=== PATIENT | female | born 1990 | race Caucasian/White ===

== ENCOUNTER 2020-03-25 17:51 | Outpatient (REF) | payer MEDICAID, SELFPAY | END 2020-03-25 17:52 | disposition home or self-care (01) | LOC: HO.LAB 17:51 | PROVIDERS: Visit Provider Internal Medicine | DX: Z20.828 Contact with and (suspected) exposure to other viral communicable diseases (principal) | CPT/HCPCS: C9803; U0003 ==

== ENCOUNTER 2020-07-08 14:52 | Emergency (ER) | payer MEDICAID, SELFPAY ==
[2020-07-08 16:16] VITALS: BP 151/89; PULSE 74; RESP 18; TEMP 36.7; O2SAT 98; BMI 45.1
[2020-07-08 16:32] LABS: MANUAL DIFF FLAG NO
[2020-07-08 16:34] LABS: Basophils Percent Auto 0.4 % (0-2); Eosinophils Percent Auto 0.6 % (0-4); Hematocrit 42.3 % (37-47); Hemoglobin 13.7 g/dl (12.0-16.0); Imm Gran Abs Auto 0.01 X10*3/uL (0.00-0.03); Imm Gran Pct Auto 0.1 % (0.0-0.4); Lymphocytes Absolute Auto 3.2 X10*3/uL (1.2-4.9); Mean Corpuscular HGB Conc 32.4 g/dl (31.0-35.0); Mean Corpuscular Hemoglobin 27.8 pg (27.0-33.0); Mean Platelet Volume 8.5 fL (9.4-12.3); Monocytes Absolute Auto 0.5 X10*3/uL (0.1-1.2); Monocytes Percent Auto 6.8 % (2-11); Neutrophils Absolute Auto 3.5 X10*3/uL (2.0-8.3); Neutrophils Percent Auto 48.1 % (45-73); Platelet Count 216 X10*3/uL (160-400); Red Blood Count 4.92 X10*6/uL (4.20-5.50); White Blood Count 7.2 X10*3/uL (4.8-10.8)
[2020-07-08 17:01] LABS: Anion Gap 13 (12-20); Blood Urea Nitrogen 14 mg/dL (9-16); Calcium 9.6 mg/dL (8.4-10.2); Carbon Dioxide 29 mmol/L (22-29); Chloride 103 mmol/L (96-108); Creatinine Clr Calc Pharmacy 142.5; Estimated Glomerular Filt Rate > 60; Glucose Random 93 mg/dL (60-115); Potassium 4.5 mmol/L (3.3-5.1); Sodium 140 mmol/L (135-145)
[2020-07-08 20:00] VITALS: BP 150/92; PULSE 72; RESP 16; TEMP 36.6; O2SAT 100
[2020-07-08] MEDS: 0.9 % Sodium Chloride 1,000 ML 999 ML IV (20:45)
--- NOTE | 2020-07-08 21:36 | ED.HA ---
HPI - Headache General Chief Complaint: Nausea/Vomiting/Diarrhea Stated Complaint: HEADACHE Time Seen by Provider: 07/08/20 21:06 Source: patient Mode of arrival: ambulatory History of Present Illness HPI Narrative: 30-year-old female with history of migraines presents with onset of migraine that she described as usual progression since Wednesday. Patient states she has not kept a headache log before but her migraines typically start and are usually associated with sensitivities to smells and occasionally to light. She denies any fevers, chills, abdominal pain, diarrhea, urinary pain/burning/frequency. Patient has the Mirena and states that she rarely has a menstrual cycle. Patient does state that she has had some nausea and vomiting for the past couple of days. Related Data Allergies Allergy/AdvReac Type Severity Reaction Status Date / Time No Known Allergies Allergy Mild NONE Unverified 12/14/19 16:19 Review of Systems Review of Systems: Pertinent positives and negatives as stated in HPI 10 point review of systems otherwise negative. PMFSH Past Medical History Source: nursing notes reviewed Medical History Migraines Social History Social History Advance Directives: No Advance Directives Information Provided: Yes Physical Exam Vital Signs: Vital Signs: Last Vital Signs Temp 97.6 F 07/08/20 22:00 Pulse 84 07/08/20 22:00 Resp 16 07/08/20 22:00 BP 136/75 07/08/20 22:00 Pulse Ox 100 07/08/20 22:00 Body Mass Index 45.1 VITAL SIGNS: Reviewed. GENERAL: Well developed, well nourished, in no acute distress. HEAD: Normocephalic/atraumatic EYES: PERRLA, EOMI intact without pain, no nystagmus OROPHARYNX: no oral lesions noted, posterior pharynx clear, dry mucosa NECK: Supple, no adenopathy LUNGS: Normal breath sounds. SpO2<100> CARDIOVASCULAR: Regular rate and rhythm without noted murmurs ABDOMEN: Soft, non-tender, non-distended with bowel sounds. SKIN: Inspection of the skin reveals no rashes NEUROLOGIC: Alert and oriented x 4. Strength and sensation to light touch were grossly intact x 4, no pronator drift, no facial asymmetry, otherwise nonfocal. Course Course Course Narrative: This is a 30-year-old female with history and clinical presentation consistent with normal onset and progression of migraine headache and doubt secondary to known Mirena device and on review of all investigations there are no acute findings. Patient will be treated with IV fluids, Reglan, Benadryl, Tylenol, Toradol and re-evaluated for headaches cessation. Review of all investigations and on re-evaluation there are no acute findings and patient reports feeling much better and feels like she can go home without difficulty. Patient was discharged in stable condition with instructions follow up with her primary care provider, keep a headache log, and request a referral to Neurology for better outpatient management of her migraines. MDM - Headache Lab Data Result diagrams: 07/08/20 16:27 07/08/20 16:27 Labs: Lab Results 07/08/20 07/08/20 07/08/20 Range/Units 16:27 16:27 21:57 WBC 7.2 (4.8-10.8) X10*3/uL RBC 4.92 (4.20-5.50) X10*6/uL Hgb 13.7 (12.0-16.0) g/dl Hct 42.3 (37-47) % MCV 86.0 (80-98) fL MCH 27.8 (27.0-33.0) pg MCHC 32.4 (31.0-35.0) g/dl RDW 13.0 (11.0-16.0) % Plt Count 216 (160-400) X10*3/uL MPV 8.5 L (9.4-12.3) fL Immature Gran % (Auto) 0.1 (0.0-0.4) % Neut % (Auto) 48.1 (45-73) % Lymph % (Auto) 44.0 H (20-40) % [place] % (Auto) 6.8 (2-11) % Eos % (Auto) 0.6 (0-4) % Baso % (Auto) 0.4 (0-2) % Lymph # (Auto) 3.2 (1.2-4.9) X10*3/uL [place] # (Auto) 0.5 (0.1-1.2) X10*3/uL Eos # (Auto) 0.0 (0.0-0.4) X10*3/uL Baso # (Auto) 0.0 (0.0-0.2) X10*3/uL Abs Immat Gran (auto) 0.01 (0.00-0.03) X10*3/uL Absolute Neuts (auto) 3.5 (2.0-8.3) X10*3/uL Absolute Nucleated RBC 0.000 (0.0-0.012) X10*3/uL Nucleated RBC % (auto) 0.0 (0.0-0.2) /100WBC Sodium 140 (135-145) mmol/L Potassium 4.5 (3.3-5.1) mmol/L Chloride 103 (96-108) mmol/L Carbon Dioxide 29 (22-29) mmol/L Anion Gap 13 (12-20) BUN 14 (9-16) mg/dL Creatinine 0.78 (0.5-1.4) mg/dL Estim Creat Clear Calc 142.5 Estimated GFR > 60 Random Glucose 93 (60-115) mg/dL Calcium 9.6 (8.4-10.2) mg/dL Beta HCG, Quant < 2 mIU/mL Urine Color Urine Appearance Urine pH (5.0-8.0) Ur Specific [place] (1.005-1.025) Urine Protein (NEG-TRACE) MG/DL Urine Glucose (UA) (NEG) MG/DL Urine Ketones (NEG) MG/DL Urine Blood (NEG) Urine Nitrite (NEG) Ur Leukocyte Esterase (NEG) Urine RBC (0) /HPF Urine WBC (0-4) /HPF Ur Squamous Epith Cells /LPF Urine Bacteria /LPF Urine Test (NEGATIVE) Urine Opiates Screen Not Detected (Not Detect) Ur Barbiturates Screen Not Detected (Not Detect) Ur Phencyclidine Scrn Not Detected (Not Detect) Ur Amphetamines Screen Not Detected (Not Detect) U Benzodiazepines Scrn Not Detected (Not Detect) Urine Cocaine Screen Not Detected (Not Detect) U Marijuana (THC) Screen Not Detected (Not Detect) 07/08/20 07/08/20 Range/Units 21:57 21:57 WBC (4.8-10.8) X10*3/uL RBC (4.20-5.50) X10*6/uL Hgb (12.0-16.0) g/dl Hct (37-47) % MCV (80-98) fL MCH (27.0-33.0) pg MCHC (31.0-35.0) g/dl RDW (11.0-16.0) % Plt Count (160-400) X10*3/uL MPV (9.4-12.3) fL Immature Gran % (Auto) (0.0-0.4) % Neut % (Auto) (45-73) % Lymph % (Auto) (20-40) % [place] % (Auto) (2-11) % Eos % (Auto) (0-4) % Baso % (Auto) (0-2) % Lymph # (Auto) (1.2-4.9) X10*3/uL [place] # (Auto) (0.1-1.2) X10*3/uL Eos # (Auto) (0.0-0.4) X10*3/uL Baso # (Auto) (0.0-0.2) X10*3/uL Abs Immat Gran (auto) (0.00-0.03) X10*3/uL Absolute Neuts (auto) (2.0-8.3) X10*3/uL Absolute Nucleated RBC (0.0-0.012) X10*3/uL Nucleated RBC % (auto) (0.0-0.2) /100WBC Sodium (135-145) mmol/L Potassium (3.3-5.1) mmol/L Chloride (96-108) mmol/L Carbon Dioxide (22-29) mmol/L Anion Gap (12-20) BUN (9-16) mg/dL Creatinine (0.5-1.4) mg/dL Estim Creat Clear Calc Estimated GFR Random Glucose (60-115) mg/dL Calcium (8.4-10.2) mg/dL Beta HCG, Quant mIU/mL Urine Color YELLOW Urine Appearance CLEAR Urine pH 6.0 (5.0-8.0) Ur Specific [place] 1.020 (1.005-1.025) Urine Protein NEG (NEG-TRACE) MG/DL Urine Glucose (UA) NEG (NEG) MG/DL Urine Ketones NEG (NEG) MG/DL Urine Blood 3+ H (NEG) Urine Nitrite NEG (NEG) Ur Leukocyte Esterase NEG (NEG) Urine RBC 1-4 (0) /HPF Urine WBC 0 (0-4) /HPF Ur Squamous Epith Cells 2+ /LPF Urine Bacteria 1+ /LPF Urine Test NEGATIVE (NEGATIVE) Urine Opiates Screen (Not Detect) Ur Barbiturates Screen (Not Detect) Ur Phencyclidine Scrn (Not Detect) Ur Amphetamines Screen (Not Detect) U Benzodiazepines Scrn (Not Detect) Urine Cocaine Screen (Not Detect) U Marijuana (THC) Screen (Not Detect) Discharge Plan Discharge Clinical Impression: Migraines Patient Disposition: Home, Self-Care Instructions: Migraine Headache (ED) Additional Instructions: 1. Tylenol 1000 mg, orally, every 6 hours as needed for pain control. Do not exceed 4000 mg within 24 hours. 2. Ibuprofen 400 mg, orally with milk or food, every 6 hours as needed for pain control. Recommend taking this together with the Tylenol for added symptom relief. 3. Stay well hydrated especially with water. 4. Please follow-up with your primary care provider in next 2-3 days and discuss further outpatient management of your migraine headaches that may involve a referral to Neurology. Do not hesitate to return to the emergency department for any acute worsening of your symptoms. Referrals: Sarahy Swanson MD [Primary Care Provider] - 2 days
[2020-07-08] MEDS: diphenhydrAMINE HCL 50 MG/ML VIAL 25 MG IVPUSH (21:43)
[2020-07-08] MEDS: Acetaminophen 325 MG TABLET 975 MG PO (21:44)
[2020-07-08] MEDS: Ketorolac Tromethamine 15 MG/ML VIAL IVPUSH (21:44)
[2020-07-08] MEDS: ondansetron HCL 4 MG/2 ML VIAL IVPUSH (21:45)
[2020-07-08] MEDS: Metoclopramide HCl 10 MG/2 ML VIAL IVPUSH (21:45)
[2020-07-08 22:00] VITALS: BP 136/75; PULSE 84; RESP 16; TEMP 36.4; O2SAT 100
[2020-07-08 22:04] LABS: Appearance Urine CLEAR; Color Urine YELLOW; Glucose Urine UA NEG (NEG); Leukocyte Esterase Urine NEG (NEG); Nitrite Urine NEG (NEG); Urine Blood 3+ (NEG); Urine Ketones NEG (NEG); Urine Protein NEG (NEG-TRACE)
[2020-07-08 22:06] LABS: Urine Pregnancy NEGATIVE (NEGATIVE)
[2020-07-08 22:07] LABS: UPreg QC Valid YES
[2020-07-08 22:11] LABS: Bacteria Urine 1+ /LPF; Squamous Epithelial Cell Urine 2+ /LPF; WBC Urine 0 /HPF (0-4)
[2020-07-08 22:34] LABS: Amphetamine Screen Urine Not Detected (Not Detect); Barbiturates, Urine Not Detected (Not Detect); Benzodiazepines Screen Urine Not Detected (Not Detect); Cannabinoid Screen Urine Not Detected (Not Detect); Cocaine Screen Urine Not Detected (Not Detect); Opiate Screen Urine Not Detected (Not Detect); Phencyclidine Screen Urine Not Detected (Not Detect)
[2020-07-08 22:56] LABS: HCG Quantitative < 2 mIU/mL
== END 2020-07-08 23:23 | disposition home or self-care (01) ==
PROVIDERS: Emergency Provider Student in an Organized Health Care Education/Training Program; PCP Pediatrics
DX: G43.909 Migraine, unspecified, not intractable, without status migrainosus (principal); R11.2 Nausea with vomiting, unspecified
CPT/HCPCS: 36415; 80048; 80307; 81001; 81003; 81025; 84702; 85025; 96361; 96374; 96375; 99284; J1200; J1885; J2405; J2765

== ENCOUNTER 2020-10-07 11:07 | Emergency (ER) | payer MEDICAID, SELFPAY ==
[2020-10-07 11:47] VITALS: BP 143/78; PULSE 93; RESP 18; TEMP 37; O2SAT 97; BMI 45.1
--- NOTE | 2020-10-07 12:53 | ED.URI ---
HPI - URI/Sore Throat General Chief Complaint: Upper Respiratory Symptoms Stated Complaint: Congested Time Seen by Provider: 10/07/20 11:53 Source: patient Mode of arrival: ambulatory Limitations: no limitations History of Present Illness HPI Narrative: 30-year-old female with history of asthma presents the emergency department with reports of cough, sore throat, congestion x1 week. Patient states her symptoms started with a minor sore throat that progressed to a nonproductive cough congestion and yellow sputum production. Denies known fevers or chills denies chest pain or shortness of breath states she did have used her inhaler more than normal over the last few days. Denies any nausea vomiting diarrhea or changes in urination. Due to concern she felt she needed to be seen she has not been tested for COVID-19. Denies other known sick contacts. Related Data Allergies Allergy/AdvReac Type Severity Reaction Status Date / Time No Known Allergies Allergy Mild NONE Verified 10/07/20 11:47 Review of Systems Review of Systems: Constitutional : No Weight loss, No Fever, No Chills, No Night Sweats, No Fatigue, No Malaise ENT/Mouth : No Hearing loss, No Ear Pain, + Nasal Congestion, No Sinus Pain, No Hoarseness, + sore throat, + Rhinorrhea, No Swallowing Difficulty Eyes: No Eye Pain, No Swelling, No Redness, No Foreign Body, No Discharge, No Vision Changes Cardiovascular : No Chest Pain, No SOB, No Dyspnea on Exertion, No Orthopnea, No Edema, No Palpitations Respiratory : + Cough, + Sputum, No Wheezing, No Smoke Exposure, No Dyspnea Gastrointestinal : No Nausea, No Vomiting, No Diarrhea, No Constipation, No abdominal Pain, No Hematochezia, No Melena Genitourinary : no irregular bleeding, No Dysuria, No Urinary Frequency, No Hematuria, No Urinary Incontinence, No Urgency, No Flank Pain, No Urinary Flow Changes, No Hesitancy Musculoskeletal : No joint pain, No Myalgias, No Joint Swelling Skin : No Skin Lesions, No rash Neuro : No Weakness, No Numbness, No Paresthesias, No Loss of Consciousness, No Dizziness, No Headache Psych : No Anxiety/Panic, No Depression, No SI/HI/AH/VH, No Social Issues, Heme/Lymph: No Bruising, No Bleeding,No Lymphadenopathy Endocrine : No Polyuria, No Polydipsia, No Temperature Intolerance PMFSH Past Medical History Attestation statement: The following information was validated with the patient. Source: old records reviewed and obtained from family Medical History (Updated 10/07/20 @ 12:55 by MILES Jama) Asthma Endometriosis Migraines Social History Social History Advance Directives: Yes Advance Directives Information Provided: Yes Advance Directives on File: No Patient : No Physical Exam Vital Signs: Vital Signs: Last Vital Signs Temp 98.6 F 10/07/20 11:47 Pulse 93 10/07/20 11:47 Resp 18 10/07/20 11:47 BP 143/78 H 10/07/20 11:47 Pulse Ox 97 10/07/20 11:47 Body Mass Index 45.1 vital signs have been reviewed as normal and appeared to be correct. Blood pressure normal. Heart rate normal. Respiration rate normal. Temperature normal. Oxygen saturation normal. Appearance: Alert. Oriented X3. No acute distress. Head: Normal external exam. Normocephalic. Atraumatic. No Post signs noted. No raccoon eyes noted Eyes: Conjunctiva and sclera normal. ENT: EAC normal. Moist mucous membranes. No drooling noted. No muffled voice noted. Mild erythema noted to the posterior pharynx without uvular deviation or soft palate fullness no trismus. Neck: Normal inspection. Neck supple. FROM. No meningeal signs. CVS: Pulses normal throughout. RRR, no murmurs. Respiratory: No respiratory distress. Painless inspiration. Clear lung sounds bilaterally without wheezing, rhonchi or rales. No accessory muscle usage noted Abdomen: No visible injury noted. Back: Full range of motion noted. Skin: Skin warm and dry. Normal skin color. Normal skin turgor. Extremities: No lower extremity edema. Extremities exhibit normal range of motion. Neuro: Oriented X 3. No motor deficit. No sensory deficit. MDM - URI/Sore Throat MDM Narrative Medical decision making narrative: Patient's vital signs are stable and she is afebrile here patient presenting to the emergency department with cold-like symptoms. Lungs are clear no acute concern for pneumonia. Pharynx is within normal limits without trismus uvular deviation or soft palate fullness. Abdomen soft nondistended nontender. Will swab for COVID-19, symptoms most likely represent viral cold will discharge with close outpatient follow-up and strict return precautions patient comfortable with this plan no signs of bacterial infection at this time. Discharge Plan Discharge Clinical Impression: Viral infection Patient Disposition: Home, Self-Care Instructions: Viral Syndrome (ED) Additional Instructions: You were seen in the emergency department today for cold-like symptoms lungs were clear with no signs of pneumonia. Given the absence of fever there is not an acute concern for sinusitis at this time in your throat was well appearing. You were swabbed for COVID-19 you will be called with these results are positive. Continue to enforce isolation precautions until these return. Continue to encourage fluids at home and follow-up with your doctor if symptoms persist or you develop high fevers. Referrals: Sarahy Swanson MD [Primary Care Provider] - 2 days Interventions: ED Discharge Assessment Last Done: 10/07/20 13:17 Discharge Date/Time: 10/07/20 13:18 Print Language: Swedish
[2020-10-07 13:29] LABS: COVID-19 Test Negative (Negative); IDNOW Serial# 9DD0AD1C
== END 2020-10-07 13:18 | disposition home or self-care (01) ==
PROVIDERS: Physician Assistant; Emergency Provider Emergency Medicine; PCP Pediatrics
DX: B34.9 Viral infection, unspecified (principal); R05 Cough; Z20.822 Contact with and (suspected) exposure to COVID-19
CPT/HCPCS: 36415; 87635; 99283

== ENCOUNTER 2020-11-12 20:36 | Emergency (ER) | payer MEDICAID, SELFPAY ==
--- NOTE | ~2020-11-12 | CT_ITS ---
EXAMINATION: CT ABDOMEN AND PELVIS WITH CONTRAST CLINICAL INFORMATION: Mid abdominal pain with diarrhea. COMPARISON: 06/17/2017 TECHNIQUE: Multidetector volumetric images were obtained from the superior aspect of the liver through the pubic symphysis following administration 85 mL of Omnipaque 350 intravenous contrast. Sagittal and coronal reformatted images were obtained on the technologist's workstation. Oral contrast: No This CT examination was performed using dose optimization techniques as appropriate, variously including the following: *Automated exposure control *Adjustment of mA and/or kV according to patient size (this includes techniques or standardized protocols for targeted exams where dose is matched to indication/reason for exam; i.e. extremities or head) *Use of iterative reconstruction technique DLP: 1096 mGy-cm FINDINGS: LUNG BASES: The visualized lung bases are unremarkable. LIVER, GALLBLADDER, AND BILIARY TREE: The liver is normal in size, shape, and attenuation. No focal hepatic lesion or biliary ductal dilatation is present. The gallbladder is unremarkable with no evidence of radiopaque gallstones, gallbladder wall thickening, or obvious pericholecystic inflammatory changes. PANCREAS: Unremarkable. SPLEEN: Unremarkable. ADRENAL GLANDS: Unremarkable. KIDNEYS AND URETERS: The kidneys are normal in size, shape, and attenuation. No hydronephrosis, hydroureter, or calculi seen. No perinephric stranding. BLADDER: Unremarkable. GASTROINTESTINAL TRACT: The small and large bowel are unremarkable. The appendix is unremarkable. ABDOMINAL WALL: No significant hernia is appreciated. LYMPH NODES: Normal. VASCULAR: Unremarkable. PELVIC VISCERA: The uterus and adnexa are unremarkable. IUD in place. OSSEOUS STRUCTURES: Unremarkable. CT/CT abdomen pelvis w con IMPRESSION: No acute findings in the abdomen or pelvis. No inflammatory change.
[2020-11-12 22:09] VITALS: BP 121/82; PULSE 87; RESP 18; TEMP 37.2; O2SAT 100; BMI 45.1
--- NOTE | 2020-11-13 02:50 | PC.NURSE ---
IV PLACED TO [facility], LABS DRAWN TO LAB. STOOL SAMPLE TO LAB FOR EVAL.
[2020-11-13 02:57] LABS: Basophils Percent Auto 0.4 % (0-2); Eosinophils Absolute Auto 0.1 X10*3/uL (0.0-0.4); Eosinophils Percent Auto 0.7 % (0-4); Hematocrit 43.7 % (37-47); Hemoglobin 14.4 g/dl (12.0-16.0); Imm Gran Abs Auto 0.02 X10*3/uL (0.00-0.03); Imm Gran Pct Auto 0.2 % (0.0-0.4); Lymphocytes Absolute Auto 3.5 X10*3/uL (1.2-4.9); Lymphocytes Percent Auto 42.9 % (20-40); MANUAL DIFF FLAG SCAN; Mean Corpuscular Hemoglobin 28.2 pg (27.0-33.0); Mean Corpuscular Volume 85.5 fL (80-98); Mean Platelet Volume 9.4 fL (9.4-12.3); Monocytes Absolute Auto 0.6 X10*3/uL (0.1-1.2); Monocytes Percent Auto 6.8 % (2-11); PLT CLUMP 1; Red Blood Count 5.11 X10*6/uL (4.20-5.50); Red Cell Distribution Width 12.6 % (11.0-16.0); SCAN SMEAR FLAG 1
[2020-11-13 02:58] LABS: Appearance Urine HAZY; Color Urine YELLOW; Glucose Urine UA NEG (NEG); Leukocyte Esterase Urine NEG (NEG); Nitrite Urine NEG (NEG); UACC Culture Trigger NO; Urine Blood 1+ (NEG); Urine Ketones NEG (NEG); Urine Protein NEG (NEG-TRACE)
[2020-11-13 03:01] LABS: Bacteria Urine 2+ /LPF
[2020-11-13 03:02] LABS: Mucus Urine 2+ /LPF; Squamous Epithelial Cell Urine 1+ /LPF
[2020-11-13 03:04] LABS: UPreg QC Valid YES; Urine Pregnancy NEGATIVE (NEGATIVE)
[2020-11-13 03:05] LABS: White Blood Count 8.1 X10*3/uL (4.8-10.8)
--- NOTE | 2020-11-13 03:07 | ED.NAVMDI ---
HPI - Nausea/Vomiting/Diarrhea General Chief complaint: Abdominal Pain Stated complaint: vomitting Time Seen by Provider: 11/13/20 03:06 Source: patient Mode of arrival: ambulatory History of Present Illness HPI Narrative: 30-year-old female with multiple episodes diarrhea since Wednesday evening with associated abdominal discomfort and does not believe that it is food contamination because she ate the same meal as everyone else. She denies any fever, chills, new cough, sore throat, nausea, vomiting, urinary pain/burning/frequency and states that she has the Mirena in place and does not get her periods except for some mild spotting here in there. Related Data Allergies Allergy/AdvReac Type Severity Reaction Status Date / Time No Known Allergies Allergy Mild NONE Verified 11/12/20 22:09 Review of Systems Review of Systems: Pertinent positives and negatives as stated in HPI 10 point review of systems is otherwise negative. [facility] Past Medical History Source: nursing notes reviewed Medical History Asthma Endometriosis Migraines Social History Social History Advance Directives: No Advance Directives Information Provided: No Patient : No Physical Exam Vital Signs: Vital Signs: Last Vital Signs Temp 98.9 F 11/12/20 22:09 Pulse 87 11/12/20 22:09 Resp 18 11/12/20 22:09 BP 121/82 11/12/20 22:09 Pulse Ox 100 11/12/20 22:09 Body Mass Index 45.1 VITAL SIGNS: Reviewed. GENERAL: Well developed, well nourished, in no acute distress. HEAD: Normocephalic/atraumatic EYES: PERRLA, EOMI OROPHARYNX: no oral lesions noted, posterior pharynx clear LUNGS: Normal breath sounds. No adventitious sounds or accessory muscle use. SpO2<100> CARDIOVASCULAR: Regular rate and rhythm without noted murmurs ABDOMEN: Soft, mild tenderness in mid abdomen without rebound, body habitus limits exam, non-distended with bowel sounds. SKIN: Inspection of the skin reveals no rashes NEUROLOGIC: Alert and oriented x 4. Strength and sensation to light touch were grossly intact x 4. Course Course Course Narrative: This is a 30-year-old female with history and clinical presentation suggestive of possible food contamination, viral gastroenteritis as there is no history of recent antibiotic use. Will obtain basic labs, UA and rule out renal colic and give IV fluids. Review of all investigations negative for acute findings and all results discussed with the patient at bedside. On re-evaluation the patient is feeling somewhat better but is still continuing to have loose bowel movements but is able to tolerate oral intake. Rehydrated here in the emergency room and discharged home in stable condition with instructions to use dietary changes as well as [id number] medications for diarrheal control. MDM - Nausea/Vomiting/Diarrhea Lab Data Result diagrams: 11/13/20 02:48 11/13/20 03:37 Labs: Lab Results 11/13/20 11/13/20 11/13/20 Range/Units 02:41 02:42 02:42 WBC (4.8-10.8) X10*3/uL RBC (4.20-5.50) X10*6/uL Hgb (12.0-16.0) g/dl Hct (37-47) % MCV (80-98) fL MCH (27.0-33.0) pg MCHC (31.0-35.0) g/dl RDW (11.0-16.0) % Plt Count (160-400) X10*3/uL MPV (9.4-12.3) fL Immature Gran % (Auto) (0.0-0.4) % Neut % (Auto) (45-73) % Lymph % (Auto) (20-40) % [place] % (Auto) (2-11) % Eos % (Auto) (0-4) % Baso % (Auto) (0-2) % Lymph # (Auto) (1.2-4.9) X10*3/uL [place] # (Auto) (0.1-1.2) X10*3/uL Eos # (Auto) (0.0-0.4) X10*3/uL Baso # (Auto) (0.0-0.2) X10*3/uL Abs Immat Gran (auto) (0.00-0.03) X10*3/uL Absolute Neuts (auto) (2.0-8.3) X10*3/uL Absolute Nucleated RBC (0.0-0.012) X10*3/uL Nucleated RBC % (auto) (0.0-0.2) /100WBC Smear Tech's Comments Sodium (135-145) mmol/L Potassium (3.3-5.1) mmol/L Chloride (96-108) mmol/L Carbon Dioxide (22-29) mmol/L Anion Gap (12-20) BUN (9-16) mg/dL Creatinine (0.5-1.4) mg/dL Estim Creat Clear Calc Estimated GFR Random Glucose (60-115) mg/dL Calcium (8.4-10.2) mg/dL Total Bilirubin (0.0-1.0) mg/dL AST (5-31) U/L ALT (0-31) U/L Alkaline Phosphatase (39-117) U/L Total Protein (6.5-8.0) g/dL Albumin (3.5-5.0) g/dL Urine Color YELLOW Urine Appearance HAZY Urine pH 6.0 (5.0-8.0) Ur Specific [place] 1.010 (1.005-1.025) Urine Protein NEG (NEG-TRACE) MG/DL Urine Glucose (UA) NEG (NEG) MG/DL Urine Ketones NEG (NEG) MG/DL Urine Blood 1+ H (NEG) Urine Nitrite NEG (NEG) Ur Leukocyte Esterase NEG (NEG) Urine RBC 1-4 (0) /HPF Urine WBC 1-4 (0-4) /HPF Ur Squamous Epith Cells 1+ /LPF Urine Bacteria 2+ /LPF Urine Mucus 2+ /LPF Urine Test NEGATIVE (NEGATIVE) Stool Leukocytes, Qual (NEGATIVE) Coronavirus (PCR) NEGATIVE (Negative) Influenza Type A (PCR) NEGATIVE (Negative) Influenza Type B (PCR) NEGATIVE (Negative) RSV RNA Qual (PCR) NEGATIVE (Negative) 11/13/20 11/13/20 11/13/20 Range/Units 02:48 03:37 03:37 WBC 8.1 (4.8-10.8) X10*3/uL RBC 5.11 (4.20-5.50) X10*6/uL Hgb 14.4 (12.0-16.0) g/dl Hct 43.7 (37-47) % MCV 85.5 (80-98) fL MCH 28.2 (27.0-33.0) pg MCHC 33.0 (31.0-35.0) g/dl RDW 12.6 (11.0-16.0) % Plt Count 132 L D (160-400) X10*3/uL MPV 9.4 (9.4-12.3) fL Immature Gran % (Auto) 0.2 (0.0-0.4) % Neut % (Auto) 49.0 (45-73) % Lymph % (Auto) 42.9 H (20-40) % [place] % (Auto) 6.8 (2-11) % Eos % (Auto) 0.7 (0-4) % Baso % (Auto) 0.4 (0-2) % Lymph # (Auto) 3.5 (1.2-4.9) X10*3/uL [place] # (Auto) 0.6 (0.1-1.2) X10*3/uL Eos # (Auto) 0.1 (0.0-0.4) X10*3/uL Baso # (Auto) 0.0 (0.0-0.2) X10*3/uL Abs Immat Gran (auto) 0.02 (0.00-0.03) X10*3/uL Absolute Neuts (auto) 4.0 (2.0-8.3) X10*3/uL Absolute Nucleated RBC 0.000 (0.0-0.012) X10*3/uL Nucleated RBC % (auto) 0.0 (0.0-0.2) /100WBC Smear Tech's Comments VERIFIED Sodium 140 (135-145) mmol/L Potassium 3.9 (3.3-5.1) mmol/L Chloride 105 (96-108) mmol/L Carbon Dioxide 27 (22-29) mmol/L Anion Gap 12 (12-20) BUN 7 L (9-16) mg/dL Creatinine 0.77 (0.5-1.4) mg/dL Estim Creat Clear Calc 144.3 Estimated GFR > 60 Random Glucose 102 (60-115) mg/dL Calcium 9.6 (8.4-10.2) mg/dL Total Bilirubin 0.7 (0.0-1.0) mg/dL AST 34 H (5-31) U/L ALT 64 H (0-31) U/L Alkaline Phosphatase 77 (39-117) U/L Total Protein 7.0 (6.5-8.0) g/dL Albumin 4.5 (3.5-5.0) g/dL Urine Color Urine Appearance Urine pH (5.0-8.0) Ur Specific [place] (1.005-1.025) Urine Protein (NEG-TRACE) MG/DL Urine Glucose (UA) (NEG) MG/DL Urine Ketones (NEG) MG/DL Urine Blood (NEG) Urine Nitrite (NEG) Ur Leukocyte Esterase (NEG) Urine RBC (0) /HPF Urine WBC (0-4) /HPF Ur Squamous Epith Cells /LPF Urine Bacteria /LPF Urine Mucus /LPF Urine Test (NEGATIVE) Stool Leukocytes, Qual NEGATIVE (NEGATIVE) Coronavirus (PCR) (Negative) Influenza Type A (PCR) (Negative) Influenza Type B (PCR) (Negative) RSV RNA Qual (PCR) (Negative) Discharge Plan Discharge Clinical Impression: Gastroenteritis Patient Disposition: Home, Self-Care Instructions: Gastroenteritis (ED), Food Poisoning (ED), Nutrition Tips for Relief of Diarrhea (ED), Loperamide (By mouth) Additional Instructions: 1. Continued increase fluid hydration especially with water and alternating with Gatorade. 2. Please review the recommendations for dietary foods that can help resolved that diarrhea. 3. Follow-up with your primary care provider in the next 1-2 days for re-evaluation further outpatient management. Return to the ER for acute worsening of symptoms. Referrals: Sarahy Swanson MD [Primary Care Provider] - 2 days
[2020-11-13 03:22] LABS: Platelet Count 132 X10*3/uL (160-400)
[2020-11-13 03:23] LABS: SLIDE REVIEW VERIFIED
[2020-11-13 04:05] LABS: Influenza A PCR NEGATIVE (Negative); Influenza B PCR NEGATIVE (Negative); Resp Syncy Virus RNA Qual PCR NEGATIVE (Negative); SARS COV2 PCR INHOUSE NEGATIVE (Negative)
[2020-11-13 04:39] LABS: Leukocytes Stool Qualitative NEGATIVE (NEGATIVE)
[2020-11-13 04:41] LABS: Alanine Aminotransferase 64 U/L (0-31); Albumin Level 4.5 g/dL (3.5-5.0); Anion Gap 12 (12-20); Aspartate Amino Transferase 34 U/L (5-31); Bilirubin Total 0.7 mg/dL (0.0-1.0); Calcium 9.6 mg/dL (8.4-10.2); Carbon Dioxide 27 mmol/L (22-29); Chloride 105 mmol/L (96-108); Creatinine Clr Calc Pharmacy 144.3; Estimated Glomerular Filt Rate > 60; Glucose Random 102 mg/dL (60-115); Potassium 3.9 mmol/L (3.3-5.1); Sodium 140 mmol/L (135-145)
[2020-11-13 04:42] LABS: Alkaline Phosphatase 77 U/L (39-117); Blood Urea Nitrogen 7 mg/dL (9-16)
--- NOTE | 2020-11-13 04:57 | PC.NURSE ---
PT TO CT IN STRETCHER.
[2020-11-13] MEDS: iohexoL 350 MG/ML 100 ML INFUS..BTL 85 ML IV (05:02)
--- NOTE | 2020-11-13 05:06 | PC.NURSE ---
PT UP TO RESTROOM WITH STEADY EVEN GAIT.
[2020-11-13 05:37] VITALS: BP 135/79; PULSE 72; RESP 16; TEMP 36.6; O2SAT 100
== END 2020-11-13 06:01 | disposition home or self-care (01) ==
PROVIDERS: Emergency Provider Student in an Organized Health Care Education/Training Program; PCP Pediatrics
DX: K52.9 Noninfective gastroenteritis and colitis, unspecified (principal); Z20.822 Contact with and (suspected) exposure to COVID-19
CPT/HCPCS: 0241U; 36415; 74177; 80053; 81001; 81025; 85025; 87045; 87046; 89055; 96360; 99283; 99284; Q9967

== ENCOUNTER 2022-03-01 10:14 | Emergency (ER) | payer MEDICAID, SELFPAY ==
[2022-03-01 10:29] VITALS: BP 149/82; PULSE 84; RESP 18; TEMP 36.9; O2SAT 96
[2022-03-01 10:48] VITALS: BP 149/82; PULSE 84; RESP 18; TEMP 36.6; O2SAT 96; BMI 46.5
[2022-03-01 11:10] LABS: COVID-19 Test Negative (Negative); IDNOW Serial# 16C4AD1C
[2022-03-01 11:25] LABS: IDNOW Serial# BCCEAD1C; Influenza A Negative (Negative); Influenza B2 Negative (Negative)
--- NOTE | 2022-03-01 12:13 | ED_ITS ---
HPI - General Adult General Chief complaint: Upper Respiratory Symptoms Stated complaint: SOB/Cough Time Seen by Provider: 03/01/22 12:00 Source: patient Mode of arrival: ambulatory Limitations: no limitations History of Present Illness HPI narrative: [age] year female history of asthma presents to ED for cough for the past 3 weeks. Patient states mother and daughter have the same symptoms. Patient denies any leg swelling, calf pain, coughing up blood, recent long travel, recent surgery, or any control use. Related Data Previous Rx's Medication Instructions Recorded azithromycin 250 mg tablet See Rx Instructions PO .COMPLEX #6 03/01/22 tabs benzonatate 100 mg capsule 100 mg PO TID PRN cough #15 caps 03/01/22 prednisone 20 mg tablet 40 mg PO DAILY 5 days #10 tabs 03/01/22 Allergies Allergy/AdvReac Type Severity Reaction Status Date / Time No Known Allergies Allergy Mild NONE Verified 11/12/20 22:09 Review of Systems Review of Systems: Cough, congestion and fever Yes all other systems are reviewed and are negative [facility] Past Medical History Medical History Asthma Endometriosis Migraines Social History Social History Advance Directives: No Advance Directives Information Provided: No Physical Exam ED Vital Signs: Vital Signs - 24 hr 03/01/22 10:29 03/01/22 10:48 Temperature 98.4 F 98 F Pulse Rate 84 84 Respiratory Rate 18 18 Blood Pressure 149/82 H 149/82 H Pulse Oximetry 96 96 Oxygen Delivery Method Room Air Room Air BMI result Body Mass Index 46.5 Const General: cooperative, healthy appearing, comfortable, no acute distress, well developed and alert Orientation/consciousness: oriented to person, oriented to place, oriented to time and patient oriented x3 HENMT Head: Yes normal to inspection, Yes No palpable skull fracture present, Yes normocephalic, Yes atraumatic and No abrasion Eyes General: appearance normal, both eyes and all related structures Neck Neck: Yes normal visual inspection, Yes full ROM, Yes no lymphadenopathy, Yes no meningeal signs, Yes trachea midline, Yes supple, No anterior neck swelling and No tender Chest Chest palpation & inspection: normal inspection of the chest and normal palpation of entire chest wall Resp Effort & Inspection: normal respiratory effort and able to speak in complete sentences Auscultation: clear to auscultation bilaterally Cardio Jugular venous distension: no JVD Heart sounds: S1 normal heart sound present and S2 normal heart sound present GI Inspection: Yes normal to inspection and No abdominal wall ecchymosis Palpation (GI): Soft to palpation, not firm, nontender, no guarding, not rigid and hepatosplenomegaly present General: No CVA tenderness and Yes no CVA tenderness Back/Spine/Pelvis Back: no CVA tenderness, No CVA tenderness and No back tenderness Skin General skin exam: no rashes or lesions noted and elasticity normal Neuro Other: No neuro deficits. General: oriented to person, oriented to place, oriented to time, patient oriented x3, gait normal, tone normal and no meningeal signs Cranial nerves: Yes CN's II-XII intact bilaterally and Yes Facial sensation intact/muscles of mastication intact Extrem Other: Lower extremities negative for swelling, pitting edema, or calf tenderness General: Yes normal to inspection and Yes full ROM Psych Appearance: grossly normal, well kempt and not disheveled Course Course Course Narrative: SARs Reevaluation(s) Reevaluation #1: Patient negative COVID influenza. Diagnosis bronchitis Time: 12:[address] [facility] Narrative Medical decision making narrative: Bronchitis. Due to patient states coughing green phlegm will discharge with antibiotics. Patient albuterol inhaler at home. Lab Data Labs: Lab Results 03/01/22 03/01/22 Range/Units 10:53 10:53 COVID-19 (JO-ANN) Negative (Negative) COVID-19 Clin Com See Note Influenza Type A (MARY) Negative (Negative) Influenza Type B (MARY) Negative (Negative) Influenza A & B Note See Note Discharge Plan Discharge Clinical Impression: Bronchitis Patient Disposition: Home, Self-Care Instructions: Acute Bronchitis (ED) Additional Instructions: Continue using albuterol inhaler at home. Will be discharged with antibiotics and cough medication and steroids. Please follow-up with your primary care provider. Return to the ED for any chest pain, shortness of breath, leg swelling, calf pain, coughing up blood, chest pain inspiration, or any other concerning symptoms. Prescriptions: New azithromycin 250 mg tablet See Rx Instructions .ROUTE .COMPLEX Qty: 6 0RF Rx Instructions: For 250 mg dose pack: take 500 mg today (day 1), then 250 mg for 4 days (days 2-5) benzonatate 100 mg capsule 100 mg PO TID PRN (Reason: cough) Qty: 15 0RF prednisone 20 mg tablet 40 mg PO DAILY 5 Days Qty: 10 0RF Stand Alone Forms: Work/School Release Interventions: ED Discharge Assessment Last Done: 03/01/22 12:53 Discharge Date/Time: 03/01/22 12:56 Print Language: Chinese
--- OUTSIDE RECORDS SUMMARY | 2022-03-01 12:51 | XMS_ITS | Continuity of Care Document ---
:1990 Author Organization [facility] Address [address] [place] [address]- Care Team Providers Name Role Phone Moi KOCH, Sameer Delgado Primary Care Physician [place] [facility] [place] Date(s): 12/08/21 - 01/07/22 [facility] [address] [place] [address]- Allergies, Adverse Reactions, Alerts No Known Allergies Immunizations Given and Recorded Vaccine Date Status Refusal Reason SARS-CoV-2 (COVID-19) mRNA BNT-162b2 vac 07/13/20 Recorde d SARS-CoV-2 (COVID-19) mRNA BNT-162b2 vac 06/20/20 Recorde d influenza virus vaccine, inactivated1 12/19/19 Given influenza virus vaccine, inactivated 01/21/18 Given hepatitis B adult vaccine 04/06/16 Recorded Human Papillomavirus Vaccine 04/06/16 Recorded tetanus/diphtheria/pertussis, acel(Tdap) 06/25/14 Given 1Result Comment: [facility]: [id number] Medications albuterol CFC free 90 mcg/inh inhalation aerosol 180 mcg, 2, puffs, Inhalation, Every 4 hours, PRN, # 1 each, Refills 3, Tot. Refills 3, Maintenance,04/26/20 10:02:00 EST, Inhaler, Route to Pharmacy Electronically, [id number], [facility] #[id number], 165, cm, 12/19/19... Start Date: 04/26/20 Status: OrderedCBD CBD, Refills 0, Maintenance, 04/26/20 10:05:00 EST, Supply Start Date: 04/26/20 Status: OrderedCPAP Machine See Instructions, # 1 each, Maintenance, AutoCPAP 8-20 cm H20, use Daily when sleeping, 05/21/21 9:53:00 EST, Supply Start Date: 05/21/21 Status: OrderedMirena 52 mg intrauterine device 1 each = 52 mg, Once, inserted 2018, 0 Refills, Maintenance, 04/01/18 14:52:58 EST Start Date: 04/01/18 Status: OrderedPaxlovid 150 mg-100 mg oral tablet See Instructions, 300mg nirmatrelvir (two 150mg tablets) with 100mg ritonavir (one tablet). All 3 tablets taken together twice daily for 5 days, with or without food, # 30 tablet, 0 Refills, Maintenance, 12/08/21 16:55:00 EDT, [facility] #[facility]... Start Date: 12/08/21 Status: Ordered Problem List Condition Confirmation Course Effective Dates Status Health I nformant Status Asthma Confirmed Active Endometriosis Confirmed Active Irritable bowel Confirmed Active syndrome Migraines Confirmed Active Obstructive sleep Confirmed Active apnea Palpitations Confirmed Active Social History Social History Type Response Smoking Status Never smoker; Tobacco user i n household: No entered on: 10/22/16 Sex Patient Care team information PersonnelName: Moi KOCH, Sameer Delgado Address: Address: [address] [place] [address] Adult & Pediatric Medicine [place], [place] [address]
--- OUTSIDE RECORDS SUMMARY | 2022-03-01 12:51 | XMS_ITS | Continuity of Care Document ---
:1990 Author Organization [facility] Address [address] [place] [address]- Care Team Providers Name Role Phone Sky KOCH, Sarahy Primary Care Physician Encounter [facility] Date(s): 07/11/20 - 08/10/20 [facility] [address] [place] [address]- Allergies, Adverse Reactions, Alerts Substance Reaction Severity Status NKA Active Immunizations Given and Recorded Vaccine Date Status Refusal Reason influenza virus vaccine, inactivated1 12/19/19 Given influenza virus vaccine, inactivated 01/21/18 Given hepatitis B adult vaccine 04/06/16 Recorded Human Papillomavirus Vaccine 04/06/16 Recorded tetanus/diphtheria/pertussis, acel(Tdap) 06/25/14 Given 1Result Comment: [facility]: [id number] Medications albuterol CFC free 90 mcg/inh inhalation aerosol 180 mcg, 2, puffs, Inhalation, Every 4 hours, PRN, # 1 each, Refills 3, Tot. Refills 3, Maintenance,04/26/20 10:02:00 EST, Inhaler, Route to Pharmacy Electronically, [id number], [facility] #[id number], 200, cm, 12/19/19... Start Date: 04/26/20 Status: OrderedCBD CBD, Refills 0, Maintenance, 04/26/20 10:05:00 EST, Supply Start Date: 04/26/20 Status: OrderedMirena 52 mg intrauterine device 1 each = 52 mg, Once, inserted 2018, 0 Refills, Maintenance, 04/01/18 14:52:58 EST Start Date: 04/01/18 Status: Orderedriboflavin 400 mg oral capsule 1 capsule = 400 mg, By Mouth, Daily, Vitamin B2 for migraine prevention, # 100 capsule, 3 Refills, Maintenance, 07/17/20 14:25:00 EDT, Capsule, [facility] #[id number], Partial fill upon patient request if the prescription is for a schedule II opi... Start Date: 07/17/20 Status: Orderedrizatriptan 10 mg oral tablet 1 tablet = 10 mg, By Mouth, Daily, PRN for migraine headache, may repeat dose every 2 hours up to a maximum of 3, # 12 tablet, 5 Refills, Acute 10/18/20 8:00:00 EDT, 10/18/19 13:38:00 EDT, Tablet, [facility] #[id number], Please cancel Sumatriptan... Start Date: 10/18/19 Stop Date: 10/18/20 Status: Orderedvenlafaxine 25 mg oral tablet See Instructions, Start with 0.5 (half) tablet once daily x 2 weeks, then increase to 1 tablet daily. New MIGRAINE/ANXIETY medication, # 60 tablet, 2 Refills, Maintenance, 07/17/20 14:19:00 EDT, [facility] #[id number], Please cancel Topiramate.,... Start Date: 07/17/20 Status: Ordered Problem List Condition Effective Dates Status Health Status Informant Asthma(Confirmed) Active Endometriosis(Confirmed) Active Irritable bowel syndrome(Confirmed) Active Migraines(Confirmed) Active Palpitations(Confirmed) Active Social History Social History Type Response Smoking Status Never smoker; Tobacco user i n household: No entered on: 10/22/16 Sex
--- OUTSIDE RECORDS SUMMARY | 2022-03-01 12:51 | XMS_ITS | Continuity of Care Document ---
:1990 Author Organization [facility] Address [address] [place] [address]- Care Team Providers Name Role Phone Sarahy Swanson MD Primary Care Physician Encounter [facility] [place] Date(s): 04/26/20 - 05/03/20 [facility] [address] [place], [place] [address] Attending Physician: Sarahy Swanson MD Allergies, Adverse Reactions, Alerts Substance Reaction Severity Status NKA Active Immunizations Given and Recorded Vaccine Date Status Refusal Reason influenza virus vaccine, inactivated1 12/19/19 Given influenza virus vaccine, inactivated 01/21/18 Given hepatitis B adult vaccine 04/06/16 Recorded Human Papillomavirus Vaccine 04/06/16 Recorded tetanus/diphtheria/pertussis, acel(Tdap) 06/25/14 Given 1Result Comment: [facility]: [id number] Medications albuterol CFC free 90 mcg/inh inhalation aerosol 180 mcg, 2, puffs, Inhalation, Every 4 hours, PRN, # 1 each, Refills 3, Tot. Refills 3, Maintenance,04/26/20 10:02:00 EST, Inhaler, Route to Pharmacy Electronically, [id number], [facility] #[id number], 942, cm, 12/19/19... Start Date: 04/26/20 Status: OrderedCBD CBD, Refills 0, Maintenance, 04/26/20 10:05:00 EST, Supply Start Date: 04/26/20 Status: OrderedMirena 52 mg intrauterine device 1 each = 52 mg, Once, inserted 2018, 0 Refills, Maintenance, 04/01/18 14:52:58 EST Start Date: 04/01/18 Status: Orderedrizatriptan 10 mg oral tablet 1 tablet = 10 mg, By Mouth, Daily, PRN for migraine headache, may repeat dose every 2 hours up to a maximum of 3, # 12 tablet, 5 Refills, Acute 10/18/20 8:00:00 EDT, 10/18/19 13:38:00 EDT, Tablet, [facility] #[id number], Please cancel Sumatriptan... Start Date: 10/18/19 Stop Date: 10/18/20 Status: OrderedTopamax 50 mg oral tablet See Instructions, 1.5 tablet once daily at bedtime x 2 weeks, then increase to 2 tablets daily at bedtime MIGRAINE PREVENTION, # 60 tablet, 5 Refills, Maintenance, 04/26/20 10:02:00 EST, [facility] #[id number], 165, cm, 12/19/19 14:53:00 EDT, He... Start Date: 04/26/20 Status: Ordered Problem List Condition Effective Dates Status Health Status Informant Asthma(Confirmed) Active Endometriosis(Confirmed) Active Irritable bowel syndrome(Confirmed) Active Migraines(Confirmed) Active Palpitations(Confirmed) Active Social History Social History Type Response Smoking Status Never smoker; Tobacco user i n household: No entered on: 10/22/16 Sex
--- OUTSIDE RECORDS SUMMARY | 2022-03-01 12:51 | XMS_ITS | Continuity of Care Document ---
:1990 Author Organization [facility] Address [address] [place] [address]- Care Team Providers Name Role Phone Sarahy Swanson MD Primary Care Physician Encounter [facility] Date(s): 07/17/20 - 07/24/20 [facility] [address] [place], [place] [address] Attending Physician: Sarahy Swanson MD Allergies, Adverse Reactions, Alerts Substance Reaction Severity Status NKA Active Immunizations Given and Recorded Vaccine Date Status Refusal Reason influenza virus vaccine, inactivated1 12/19/19 Given influenza virus vaccine, inactivated 01/21/18 Given hepatitis B adult vaccine 04/06/16 Recorded Human Papillomavirus Vaccine 04/06/16 Recorded tetanus/diphtheria/pertussis, acel(Tdap) 06/25/14 Given 1Result Comment: [facility]: [id number] Medications albuterol CFC free 90 mcg/inh inhalation aerosol 180 mcg, 2, puffs, Inhalation, Every 4 hours, PRN, # 1 each, Refills 3, Tot. Refills 3, Maintenance,04/26/20 10:02:00 EST, Inhaler, Route to Pharmacy Electronically, [id number], [facility] #[id number], 998, cm, 12/19/19... Start Date: 04/26/20 Status: OrderedCBD [...] 3 Refills, Maintenance, 07/17/20 14:25:00 EDT, Capsule, [facility] #[id number], Partial fill upon patient request if the prescription is for a schedule II opi... Start Date: 07/17/20 Status: Orderedrizatriptan 10 mg oral tablet 1 tablet = 10 mg, By Mouth, Daily, PRN for migraine headache, may repeat dose every 2 hours up to a maximum of 3, # 12 tablet, 5 Refills, Acute 10/18/20 8:00:00 EDT, 10/18/19 13:38:00 EDT, Tablet, [facility] #[id number], Please cancel Sumatriptan... Start Date: 10/18/19 Stop Date: 10/18/20 Status: Orderedvenlafaxine 25 mg oral tablet See Instructions, Start with 0.5 (half) tablet once daily x 2 weeks, then increase to 1 tablet daily. New MIGRAINE/ANXIETY medication, # 60 tablet, 2 Refills, Maintenance, 07/17/20 14:19:00 EDT, [facility] #[id number], Please cancel Topiramate.,... Start Date: 07/17/20 Status: Ordered Problem List Condition Effective Dates Status Health Status Informant Asthma(Confirmed) Active Endometriosis(Confirmed) Active Irritable bowel syndrome(Confirmed) Active Migraines(Confirmed) Active Palpitations(Confirmed) Active Social History Social History Type Response Smoking Status Never smoker; Tobacco user i n household: No entered on: 10/22/16 Sex
--- OUTSIDE RECORDS SUMMARY | 2022-03-01 12:51 | XMS_ITS | Continuity of Care Document ---
:1990 Author Organization [facility] Address [address] [place] [address]- Care Team Providers Name Role Phone Sameer Prater MD Primary Care Physician En[place] [facility] [place]s): 01/12/22 - 02/11/22 [facility] [address] [place], [place] [address] Attending Physician: Aly Morrissey Admitting Physician: Aly Morrissey Referring Physician: AdmtrAly Allergies, Adverse Reactions, Alerts No Known Allergies Immunizations Given and Recorded Vaccine Date Status Refusal Reason influenza virus vaccine, inactivated1 01/12/22 Given influenza virus vaccine, inactivated2 12/19/19 Given influenza virus vaccine, inactivated 01/21/18 Given SARS-CoV-2 (COVID-19) mRNA BNT-162b2 vac 07/13/20 Recorde d SARS-CoV-2 (COVID-19) mRNA BNT-162b2 vac 06/20/20 Recorde d hepatitis B adult vaccine 04/06/16 Recorded Human Papillomavirus Vaccine 04/06/16 Recorded tetanus/diphtheria/pertussis, acel(Tdap) 06/25/14 Given 1Result Comment: [facility] #: [id number] Comment: [facility]: [id number] Medications albuterol CFC free 90 mcg/inh inhalation aerosol 180 mcg, 2, puffs, Inhalation, Every 4 hours, PRN, # 1 each, Refills 3, Tot. Refills 3, Maintenance,04/26/20 10:02:00 EST, Inhaler, Route to Pharmacy Electronically, [id number], [facility] #[id number], 165, cm, 12/19/19... Start Date: 04/26/20 Status: [...] tablet, 0 Refills, Maintenance, 12/08/21 16:55:00 EDT, [facility] #0... Start Date: 12/08/21 Status: Ordered Problem List Condition Confirmation Course Effective Dates Status Health I nformant Status Asthma Confirmed Active Endometriosis Confirmed Active Irritable bowel Confirmed Active syndrome Migraines Confirmed Active Obstructive sleep Confirmed Active apnea Palpitations Confirmed Active Social History Social History Type Response Smoking Status Never smoker; Tobacco user i n household: No entered on: 10/22/16 Sex Note Event Display: Non Lab Results Authored Date: Patient Care team information Care Team PersonnelName: Sameer Prater MD Position: [facility] Primary Care Physician Member Role: PCP Address: Address: [address] [place] [address] Adult & [place] [address]- Care Team Related PersonsName: EDDIE BARRAZA Address: home [address] [place] [address] Name: SOCORRO MARVIN Address: home [address] [place] [id number] Name: JONG RAVI Address: home [address] [place] [id number] Name: KALA TATUM Address: home [address] [place] [address] [id number] Name: KALA TATUM Address: home [address] [place] [address]
--- OUTSIDE RECORDS SUMMARY | 2022-03-01 12:51 | XMS_ITS | Continuity of Care Document ---
:[address] [facility] Address [address] [place] [address]- Care Team Providers Name Role Phone Moi KOCH, Sameer Delgado Primary Care Physician Encounter [facility] [place] Date(s): 01/12/22 - 01/19/22 [facility] [address] [place] [address]- Attending Physician: Not on Staff, Attending MD Allergies, Adverse Reactions, Alerts No Known Allergies [...] Recorded tetanus/diphtheria/pertussis, acel(Tdap) 06/25/14 Given 1Result Comment: [facility] #: [id number] Comment: [facility]: [id number] Medications albuterol CFC free 90 mcg/inh inhalation aerosol 180 mcg, 2, puffs, Inhalation, Every 4 hours, PRN, # 1 each, Refills 3, Tot. Refills 3, Maintenance,04/26/20 10:02:00 EST, Inhaler, Route to Pharmacy Electronically, [id number], [id number] #[id number], 165, cm, 12/19/19... Start Date: 04/26/20 Status: [...] tablet, 0 Refills, Maintenance, 12/08/21 16:55:00 EDT, [id number] #0... Start Date: 12/08/21 Status: [...] PersonnelName: Moi KOCH, Sameer Delgado Address: Address: [address] [place] [address] Adult & Pediatric Medicine [address]
--- OUTSIDE RECORDS SUMMARY | 2022-03-01 12:51 | XMS_ITS | Continuity of Care Document ---
:1990 Author Organization [facility] Address Unavailable , Care Team Providers Name Role Phone Sameer Prater MD Primary Care Physician Encounter [facility] [place] Date(s): 11/01/20 - 03/01/21 [facility] Attending Physician: Not on Staff, Attending MD Referring Physician: Sarahy Swanson MD Allergies, Adverse Reactions, [...] Recorded tetanus/diphtheria/pertussis, acel(Tdap) 06/25/14 Given 1Result Comment: [facility]: [id number] Medications albuterol CFC free 90 mcg/inh inhalation aerosol 180 mcg, 2, puffs, Inhalation, Every 4 hours, PRN, # 1 each, Refills 3, Tot. Refills 3, Maintenance,04/26/20 10:02:00 EST, Inhaler, Route to Pharmacy Electronically, [id number], [facility] #[id number], 165, cm, 12/19/19... Start Date: 04/26/20 Status: OrderedCBD CBD, Refills 0, Maintenance, 04/26/20 10:05:00 EST, Supply Start Date: 04/26/20 Status: Orderedmagnesium oxide 400 mg oral tablet 1 tablet = 400 mg, By Mouth, Daily, for 30 days, # 30 tablet, 5 Refills, Acute 04/19/21 14:21:00 EST, 10/21/20 14:21:00 EDT, Tablet, [facility] #[id number], Partial fill upon patient request if the prescription is for a schedule II opioid drug.,... Start Date: 10/21/20 Stop Date: 04/19/21 Status: OrderedMirena 52 mg intrauterine device 1 each = 52 mg, Once, inserted 2018, 0 Refills, Maintenance, 04/01/18 14:52:58 EST Start Date: 04/01/18 Status: Orderednaratriptan 2.5 mg oral tablet 1 tablet = 2.5 mg, By Mouth, Daily, PRN for migraine headache, may repeat dose once in 4 hours, max 2 tabs / 24hrs , no more than 3 doses/week, # 9 tablet, 2 Refills, Acute 10/21/21 14:22:00 EDT, 10/21/20 14:21:00 EDT, Tablet, [facility]... Start Date: 10/21/20 Stop Date: 10/21/21 Status: Orderedriboflavin 400 mg oral capsule 1 capsule = 400 mg, By Mouth, Daily, Vitamin B2 for migraine prevention, # 100 capsule, 3 Refills, Maintenance, 07/17/20 14:25:00 EDT, Capsule, [facility] #[id number], Partial fill upon patient request if the prescription is for a schedule II opi... Start Date: 07/17/20 Status: Orderedvenlafaxine 25 mg oral tablet See Instructions, Start with 0.5 (half) tablet once daily x 2 weeks, then increase to 1 tablet daily. New MIGRAINE/ANXIETY medication, # 60 tablet, 2 Refills, Maintenance, 07/17/20 14:19:00 EDT, [facility] #[id number], Please cancel Topiramate.,... Start Date: 07/17/20 Status: Orderedvenlafaxine 50 mg oral tablet 1 tablet = 50 mg, By Mouth, Daily, dose increase , pls d/c prior script, # 30 tablet, 5 Refills, Maintenance, 10/21/20 14:22:00 EDT, Tablet, [facility] #[id number], Partial fill upon patient request if the prescription is for a schedule II opioid... Start Date: 10/21/20 Stop Date: 04/19/21 Status: Ordered Problem List Condition Effective Dates Status Health Status Informant Asthma(Confirmed) Active Endometriosis(Confirmed) Active Irritable bowel syndrome(Confirmed) Active Migraines(Confirmed) Active Palpitations(Confirmed) Active Social History Social History Type Response Smoking Status Never smoker; Tobacco user i n household: No entered on: 10/22/16 Sex
--- OUTSIDE RECORDS SUMMARY | 2022-03-01 12:51 | XMS_ITS | Continuity of Care Document ---
:1990 Author Organization [facility] Address [address] [place] [address]- Care Team Providers Name Role Phone Sarahy Swanson MD Primary Care Physician [place] [facility] [place]19 [facility] [address] [place] [address]- [facility] Attending Physician: Aly Morrissey Admitting Physician: Admtr, Aly Referring Physician: Admtr, Ar8 Allergies, Adverse Reactions, Alerts Substance Reaction Severity Status NKA Active Immunizations Given and Recorded Vaccine Date Status Refusal Reason influenza virus vaccine, inactivated 01/21/18 Given Human Papillomavirus Vaccine 04/06/16 Recorded hepatitis B adult vaccine 04/06/16 Recorded tetanus/diphtheria/pertussis, acel(Tdap) 06/25/14 Given Medications albuterol CFC free 90 mcg/inh inhalation aerosol 180 mcg, 2, puffs, Inhalation, Every 4 hours, PRN, # 1 each, Refills 3, Tot. Refills 3, Maintenance,04/23/17 14:40:49, Inhaler, Route to Pharmacy Electronically, [id number], [facility] [id number] Start Date: 04/23/17 Status: OrderedFlovent HFA 110 mcg/inh inhalation aerosol 2 puffs, Inhalation, 2 times a day, # 1 each, 11 Refills, Maintenance, 04/23/17 14:41:28, Aerosol Start Date: 04/23/17 Status: Orderedketoconazole 2% topical shampoo 1 applicator, Topically, Daily, Apply once daily to affected area for 14 days, # 120 mL, 0 Refills, Soft Stop, 07/26/19 14:06:00 EDT, [facility] #[id number], 1 applicator Topically Daily,x14 days,Instr:Apply once daily to affected area for 14 day... Start Date: 07/26/19 Stop Date: 08/09/19 Status: OrderedMirena 52 mg intrauterine device 1 [...] 10/18/20 8:00:00 EDT, 10/18/19 13:38:00 EDT, Tablet, [facility] #[id number], Please cancel Sumatriptan... Start Date: 10/18/19 Stop Date: 10/18/20 Status: OrderedTopamax 50 mg oral tablet See Instructions, 0.5 tablet once daily at bedtime x 2 weeks, then increase to 1 tablet daily at bedtime MIGRAINE PREVENTION, # 60 tablet, 2 Refills, Maintenance, 10/18/19 13:42:00 EDT, [facility] #[id number], please cancel Nortriptyline, 165, c... Start Date: 10/18/19 Status: Ordered Problem List Condition Effective Dates Status Health Status Informant Asthma(Confirmed) Active Endometriosis(Confirmed) Active Irritable bowel syndrome(Confirmed) Active Migraines(Confirmed) Active Palpitations(Confirmed) Active Social History Social History Type Response Smoking Status Never smoker; Tobacco user i n household: No entered on: 10/22/16 Sex
--- OUTSIDE RECORDS SUMMARY | 2022-03-01 12:51 | XMS_ITS | Continuity of Care Document ---
:1990 Author Organization [facility] Address [address] [place] [address]- Care Team Providers Name Role Phone Sky KOCH, Sarahy Primary Care Physician [place] [facility] [place] 07/10/20 - 08/09/20 [facility] [address] [place] [address]- Allergies, Adverse Reactions, Alerts Substance Reaction Severity Status NKA Active Immunizations Given and Recorded Vaccine Date Status Refusal Reason influenza virus vaccine, inactivated1 12/19/19 Given influenza virus vaccine, inactivated 01/21/18 Given hepatitis B adult vaccine 04/06/16 Recorded Human Papillomavirus Vaccine 04/06/16 Recorded tetanus/diphtheria/pertussis, acel(Tdap) 06/25/14 Given 1Result Comment: [facility]: [id number] Medications albuterol CFC free 90 mcg/inh inhalation aerosol 180 mcg, 2, puffs, Inhalation, Every 4 hours, PRN, # 1 each, Refills 3, Tot. Refills 3, Maintenance,04/26/20 10:02:00 EST, Inhaler, Route to Pharmacy Electronically, [id number], [facility] #[id number], 723, cm, 12/19/19... Start Date: 04/26/20 Status: OrderedCBD [...] 3 Refills, Maintenance, 07/17/20 14:25:00 EDT, Capsule, [facility] #[id number], Partial fill upon patient request if the prescription is for a schedule II opi... Start Date: 07/17/20 Status: Orderedrizatriptan 10 mg oral tablet 1 tablet = 10 mg, By Mouth, Daily, PRN for migraine headache, may repeat dose every 2 hours up to a maximum of 3, # 12 tablet, 5 Refills, Acute 10/18/20 8:00:00 EDT, 10/18/19 13:38:00 EDT, Tablet, [facility] #[id number], Please cancel Sumatriptan... Start Date: 10/18/19 Stop Date: 10/18/20 Status: Orderedvenlafaxine 25 mg oral tablet See Instructions, Start with 0.5 (half) tablet once daily x 2 weeks, then increase to 1 tablet daily. New MIGRAINE/ANXIETY medication, # 60 tablet, 2 Refills, Maintenance, 07/17/20 14:19:00 EDT, [facility] #[id number], Please cancel Topiramate.,... Start Date: 07/17/20 Status: Ordered Problem List Condition Effective Dates Status Health Status Informant Asthma(Confirmed) Active Endometriosis(Confirmed) Active Irritable bowel syndrome(Confirmed) Active Migraines(Confirmed) Active Palpitations(Confirmed) Active Social History Social History Type Response Smoking Status Never smoker; Tobacco user i n household: No entered on: 10/22/16 Sex
--- OUTSIDE RECORDS SUMMARY | 2022-03-01 12:51 | XMS_ITS | Continuity of Care Document ---
:1990 Author Organization [facility] Address [address] [place] [address]- Care Team Providers Name Role Phone Sarahy Swanson MD Primary Care Physician [place] [facility] [place]19[place]19 - 03/20/20 [facility] [address] [place], [place] [address] Attending Physician: Sarahy Swanson MD Allergies, Adverse Reactions, Alerts Substance Reaction Severity Status NKA Active Immunizations Given and Recorded Vaccine Date Status Refusal Reason influenza virus vaccine, inactivated1 12/19/19 Given influenza virus vaccine, inactivated 01/21/18 Given hepatitis B adult vaccine 04/06/16 Recorded Human Papillomavirus Vaccine 04/06/16 Recorded tetanus/diphtheria/pertussis, acel(Tdap) 06/25/14 Given 1Result Comment: [facility]: 41008-262-74 Medications albuterol CFC free 90 mcg/inh inhalation aerosol 180 mcg, 2, puffs, Inhalation, Every 4 hours, PRN, # 1 each, Refills 3, Tot. Refills 3, Maintenance,04/23/17 14:40:49, Inhaler, Route to Pharmacy Electronically, [id number], [id number] Start Date: 04/23/17 Status: OrderedFlovent HFA 110 mcg/inh inhalation aerosol 2 puffs, Inhalation, 2 times a day, # 1 each, 11 Refills, Maintenance, 04/23/17 14:41:28, Aerosol Start Date: 04/23/17 Status: Orderedketoconazole 2% topical shampoo 1 applicator, Topically, Daily, Apply once daily to affected area for 14 days, # 120 mL, 0 Refills, Soft Stop, 07/26/19 14:06:00 EDT, [facility] #[id number], 1 applicator Topically Daily,x14 days,Instr:Apply once daily [...] 10/18/20 8:00:00 EDT, 10/18/19 13:38:00 EDT, Tablet, [facility] #[id number], Please cancel Sumatriptan... Start Date: 10/18/19 Stop Date: 10/18/20 Status: OrderedTopamax 50 mg oral tablet See Instructions, 1.5 tablet once daily at bedtime x 2 weeks, then increase to 2 tablets daily at bedtime MIGRAINE PREVENTION, # 60 tablet, 2 Refills, Maintenance, 12/19/19 15:08:00 EDT, [facility] #[id number], 165, cm, 12/19/19 14:53:00 EDT, He... Start Date: 12/19/19 Status: Ordered Problem List Condition Effective Dates Status Health Status Informant Asthma(Confirmed) Active Endometriosis(Confirmed) Active Irritable bowel syndrome(Confirmed) Active Migraines(Confirmed) Active Palpitations(Confirmed) Active Social History Social History Type Response Smoking Status Never smoker; Tobacco user i n household: No entered on: 10/22/16 Sex
--- OUTSIDE RECORDS SUMMARY | 2022-03-01 12:51 | XMS_ITS | Continuity of Care Document ---
:[address] [facility] Address [address] [place] [address]- Care Team Providers Name Role Phone Sarahy Swanson MD Primary Care Physician [facility] [place] Date(s): 07/29/19 - 11/26/19 [facility] [address] [place] [address]- [facility] Attending Physician: Sarahy Swanson MD Allergies, Adverse [...] Maintenance,04/23/17 14:40:49, Inhaler, Route to Pharmacy Electronically, [id number], [facility] [address] Start Date: 04/23/17 Status: OrderedFlovent HFA 110 mcg/inh inhalation aerosol 2 puffs, Inhalation, 2 times a day, # 1 each, 11 Refills, Maintenance, 04/23/17 14:41:28, Aerosol Start Date: 04/23/17 Status: Orderedketoconazole 2% topical shampoo 1 applicator, Topically, Daily, Apply once daily to affected area for 14 days, # 120 mL, 0 Refills, Soft Stop, 07/26/19 14:06:00 EDT, [facility] #[id number], 1 applicator Topically Daily,x14 days,Instr:Apply once daily [...] 10/18/20 8:00:00 EDT, 10/18/19 13:38:00 EDT, Tablet, [facility] #[id number], Please cancel Sumatriptan... Start Date: 10/18/19 Stop Date: 10/18/20 Status: OrderedTopamax 50 mg oral tablet See Instructions, 0.5 tablet once daily at bedtime x 2 weeks, then increase to 1 tablet daily at bedtime MIGRAINE PREVENTION, # 60 tablet, 2 Refills, Maintenance, 10/18/19 13:42:00 EDT, [facility] #[id number], please cancel Nortriptyline, 165, c... Start Date: 10/18/19 Status: Ordered Problem List Condition Effective Dates Status Health Status Informant Asthma(Confirmed) Active Endometriosis(Confirmed) Active Irritable bowel syndrome(Confirmed) Active Migraines(Confirmed) Active Palpitations(Confirmed) Active Social History Social History Type Response Smoking Status Never smoker; Tobacco user i n household: No entered on: 10/22/16 Sex
--- OUTSIDE RECORDS SUMMARY | 2022-03-01 12:51 | XMS_ITS | Continuity of Care Document ---
:1990 Author Organization [facility] Address [address] [place] [address]- Care Team Providers Name Role Phone Sarahy Swanson MD Primary Care Physician [place] [facility] [place] 10[place]18/19 - 10/25/19 [facility] [address] [place] [address]- [facility] Attending Physician: Sarahy Swanson MD Allergies, Adverse [...] Maintenance,04/23/17 14:40:49, Inhaler, Route to Pharmacy Electronically, [id number], [facility] [address] Start Date: 04/23/17 Status: OrderedFlovent HFA 110 mcg/inh inhalation aerosol 2 puffs, Inhalation, 2 times a day, # 1 each, 11 Refills, Maintenance, 04/23/17 14:41:28, Aerosol Start Date: 04/23/17 Status: Orderedketoconazole 2% topical shampoo 1 applicator, Topically, Daily, Apply once daily to affected area for 14 days, # 120 mL, 0 Refills, Soft Stop, 07/26/19 14:06:00 EDT, [email or web address] #[id number], 1 applicator Topically Daily,x14 days,Instr:Apply once daily [...] 10/18/20 8:00:00 EDT, 10/18/19 13:38:00 EDT, Tablet, [facility] #[id number], Please cancel Sumatriptan... Start Date: 10/18/19 Stop Date: 10/18/20 Status: OrderedTopamax 50 mg oral tablet See Instructions, 0.5 tablet once daily at bedtime x 2 weeks, then increase to 1 tablet daily at bedtime MIGRAINE PREVENTION, # 60 tablet, 2 Refills, Maintenance, 10/18/19 13:42:00 EDT, [facility] #[id number], please cancel Nortriptyline, 165, c... Start Date: 10/18/19 Status: Ordered Problem List Condition Effective Dates Status Health Status Informant Asthma(Confirmed) Active Endometriosis(Confirmed) Active Irritable bowel syndrome(Confirmed) Active Migraines(Confirmed) Active Palpitations(Confirmed) Active Social History Social History Type Response Smoking Status Never smoker; Tobacco user i n household: No entered on: 10/22/16 Sex
--- OUTSIDE RECORDS SUMMARY | 2022-03-01 12:51 | XMS_ITS | Continuity of Care Document ---
:1990 Author Organization [facility] Address [address] [place] [address]- Care Team Providers Name Role Phone Sky KOCH, Sarahy Primary Care Physician [place] [facility] [place] - 10/09/19 [facility] [address] [place] [address]- [facility] Attending Physician: Omar Hooks MD Allergies, Adverse Reactions, Alerts Substance Reaction [...] Maintenance,04/23/17 14:40:49, Inhaler, Route to Pharmacy Electronically, [id number], [facility] [id number] Start Date: 04/23/17 Status: Orderedamoxicillin 500 mg oral tablet 1 tablet = 500 mg, By Mouth, 3 times a day, for 10 days, # 30 tablet, 0 Refills, Acute 10/12/19 14:20:00 EDT, 10/02/19 14:20:00 EDT, Tablet, [facility] #[id number], 165, cm, 04/12/19 14:04:00 EST,Height, 127, kg, 04/12/19 14:04:00 EST, Dry [facility] Start Date: 10/02/19 Stop Date: 10/12/19 Status: OrderedFlovent HFA 110 mcg/inh inhalation aerosol 2 puffs, Inhalation, 2 times a day, # 1 each, 11 Refills, Maintenance, 04/23/17 14:41:28, Aerosol Start Date: 04/23/17 Status: Orderedfluconazole 150 mg oral tablet See Instructions, Take 2 tablets once now, then in 7 days repeat dose by taking 2 tablets once again., # 4 tablet, 0 Refills, Soft Stop, 07/26/19 14:05:00 EDT, [facility] #[id number], 165, cm, 04/12/19 14:04:00 EST, Height, 127, kg, 04/12/19 14:0... Start Date: 07/26/19 Status: Orderedketoconazole 2% topical shampoo 1 applicator, Topically, Daily, Apply once daily to affected area for 14 days, # 120 mL, 0 Refills, Soft Stop, 07/26/19 14:06:00 EDT, [facility] #[id number], 1 applicator Topically Daily,x14 days,Instr:Apply once daily to affected area for 14 day... Start Date: 07/26/19 Stop Date: 08/09/19 Status: OrderedMirena 52 mg intrauterine device 1 each = 52 mg, Once, inserted 2018, 0 Refills, Maintenance, 04/01/18 14:52:58 EST Start Date: 04/01/18 Status: Orderednortriptyline 50 mg oral capsule 50 mg, 1, capsule, By Mouth, Daily at bedtime, # 30 capsule, Refills 5, Tot. Refills 5, Maintenance,07/26/19 13:54:00 EDT, Route to Pharmacy Electronically, [facility] #[id number], please note dose increase, 165, cm, 04/12/19 14:04:00 EST, Heigh... Start Date: 07/26/19 Stop Date: 01/22/20 Status: OrderedSUMAtriptan 100 mg oral tablet 1 tablet = 100 mg, By Mouth, Daily, PRN for migraine headache, may repeat dose after 2 hours up to amaximum of 2. Take first dose with Ibuprofen., # 9 tablet, 5 Refills, Acute 07/26/20 8:00:00 EDT, 07/26/19 13:56:00 EDT, Tablet, [facility]... Start Date: 07/26/19 Stop Date: 07/26/20 Status: Ordered Problem List Condition Effective Dates Status Health Status Informant Asthma(Confirmed) Active Endometriosis(Confirmed) Active Irritable bowel syndrome(Confirmed) Active Migraines(Confirmed) Active Palpitations(Confirmed) Active Social History Social History Type Response Smoking Status Never smoker; Tobacco user i n household: No entered on: 10/22/16 Sex
--- OUTSIDE RECORDS SUMMARY | 2022-03-01 12:51 | XMS_ITS | Continuity of Care Document ---
:1990 Author Organization [facility] Address [address] [place] [address]- Care Team Providers Name Role Phone Sameer Prater MD Primary Care Phys[id number] Date(s): 06/20/21 - 10/18/[address] [address]- Attending Physician: Penelope Stroud MD Admitting Physician: Penelope Stroud MD Referring Physician: Sameer Prater MD Allergies, Adverse Reactions, Alerts No Known Allergies Immunizations Given and Recorded Vaccine Date Status Refusal Reason SARS-CoV-2 (COVID-19) mRNA BNT-162b2 vac 07/13/20 Recorde d SARS-CoV-2 (COVID-19) mRNA BNT-162b2 vac 06/20/20 Recorde d influenza virus vaccine, inactivated1 12/19/19 Given influenza virus vaccine, inactivated 01/21/18 Given hepatitis B adult vaccine 04/06/16 Recorded Human Papillomavirus Vaccine 04/06/16 Recorded tetanus/diphtheria/pertussis, acel(Tdap) 06/25/14 Given 1Result Comment: [facility]: [id number] Medications albuterol CFC free 90 mcg/inh inhalation aerosol 180 mcg, 2, puffs, Inhalation, Every 4 hours, PRN, # 1 each, Refills 3, Tot. Refills 3, Maintenance,04/26/20 10:02:00 EST, Inhaler, Route to Pharmacy Electronically, [id number], [facility] #[id number], 165, cm, 12/19/19... Start Date: 04/26/20 Status: [...] 10/21/21 14:22:00 EDT, 10/21/20 14:21:00 EDT, Tablet, [facility] Start Date: 10/21/20 Stop Date: 10/21/21 Status: Orderedriboflavin 400 mg oral capsule 1 capsule = 400 mg, By Mouth, Daily, Vitamin B2 for migraine prevention, # 100 capsule, 3 Refills, Maintenance, 07/17/20 14:25:00 EDT, Capsule, [facility] #[id number], Partial fill upon patient request if the prescription is for a schedule II opi... Start Date: 07/17/20 Status: Orderedvenlafaxine 25 mg oral tablet See Instructions, Start with 0.5 (half) tablet once daily x 2 weeks, then increase to 1 tablet daily. New MIGRAINE/ANXIETY medication, # 60 tablet, 2 Refills, Maintenance, 07/17/20 14:19:00 EDT, [facility] #[id number], Please cancel Topiramate.,... Start Date: 07/17/20 Status: Orderedvenlafaxine 50 mg oral tablet 1 tablet = 50 mg, By Mouth, Daily, dose increase , pls d/c prior script, # 30 tablet, 5 Refills, Maintenance, 10/21/20 14:22:00 EDT, Tablet, [facility] #[id number], Partial fill upon patient request if the prescription is for a schedule II opioid... Start Date: 10/21/20 Stop Date: 04/19/21 Status: Ordered Problem List Condition Effective Dates Status Health Status Informant Asthma(Confirmed) Active Endometriosis(Confirmed) Active Irritable bowel syndrome(Confirmed) Active Migraines(Confirmed) Active Obstructive sleep apnea(Confirmed) Active Palpitations(Confirmed) Active Social History Social History Type Response Smoking Status Never smoker; Tobacco user i n household: No entered on: 10/22/16 Sex
--- OUTSIDE RECORDS SUMMARY | 2022-03-01 12:51 | XMS_ITS | Continuity of Care Document ---
:1990 Author Organization [facility] Address [address] [place] [address]- Care Team Providers Name Role Phone Sameer Prater MD Primary Care Physician [place] [facility] [place] [facility] [address] [address] Attending Physician: Aly Morrissey Admitting Physician: AdmAly bradshaw Referring Physician: AdmtrAly Allergies, Adverse Reactions, Alerts [...] tetanus/diphtheria/pertussis, acel(Tdap) 06/25/14 Given 1Result Comment: [facility]: [id number] Medications albuterol CFC free 90 mcg/inh inhalation aerosol 180 mcg, 2, puffs, Inhalation, Every 4 hours, PRN, # 1 each, Refills 3, Tot. Refills 3, Maintenance,04/26/20 10:02:00 EST, Inhaler, Route to Pharmacy Electronically, [id number], [facility] #[id number], 165, cm, 12/19/19... Start Date: 04/26/20 Status: [...] 10/21/21 14:22:00 EDT, 10/21/20 14:21:00 EDT, Tablet, [facility] Start Date: 10/21/20 Stop Date: 10/21/21 Status: Orderedriboflavin 400 mg oral capsule 1 capsule = 400 mg, By Mouth, Daily, Vitamin B2 for migraine prevention, # 100 capsule, 3 Refills, Maintenance, 07/17/20 14:25:00 EDT, Capsule, [facility][id number], Partial fill upon patient request if the prescription is for a schedule II opi... Start Date: 07/17/20 Status: Orderedvenlafaxine 25 mg oral tablet See Instructions, Start with 0.5 (half) tablet once daily x 2 weeks, then increase to 1 tablet daily. New MIGRAINE/ANXIETY medication, # 60 tablet, 2 Refills, Maintenance, 07/17/20 14:19:00 EDT, [facility] #[id number], Please cancel Topiramate.,... Start Date: 07/17/20 Status: Orderedvenlafaxine 50 mg oral tablet 1 tablet = 50 mg, By Mouth, Daily, dose increase , pls d/c prior script, # 30 tablet, 5 Refills, Maintenance, 10/21/20 14:22:00 EDT, Tablet, [facility] #[id number], Partial fill upon patient request if the [...]
--- OUTSIDE RECORDS SUMMARY | 2022-03-01 12:51 | XMS_ITS | Continuity of Care Document ---
:1990 Author Organization [facility] Address [address] [place] [address]- Care Team Providers Name Role Phone Sky KOCH, Sarahy Primary Care Physician En[facility] [place] Date(s): 07/10/20 - 08/09/20 [facility] [address] [place] [address]- Allergies, Adverse Reactions, Alerts Substance Reaction Severity Status NKA Active Immunizations Given and Recorded Vaccine Date Status Refusal Reason influenza virus vaccine, inactivated1 12/19/19 Given influenza virus vaccine, inactivated 01/21/18 Given hepatitis B adult vaccine 04/06/16 Recorded Human Papillomavirus Vaccine 04/06/16 Recorded tetanus/diphtheria/pertussis, acel(Tdap) 06/25/14 Given 1Result Comment: [facility]: [id number] Medications albuterol CFC free 90 mcg/inh inhalation aerosol 180 mcg, 2, puffs, Inhalation, Every 4 hours, PRN, # 1 each, Refills 3, Tot. Refills 3, Maintenance,04/26/20 10:02:00 EST, Inhaler, Route to Pharmacy Electronically, [id number], [facility] #[id number], 861, cm, 12/19/19... Start Date: 04/26/20 Status: OrderedCBD [...] 3 Refills, Maintenance, 07/17/20 14:25:00 EDT, Capsule, [facility] #[id number], Partial fill upon patient request if the prescription is for a schedule II opi... Start Date: 07/17/20 Status: Orderedrizatriptan 10 mg oral tablet 1 tablet = 10 mg, By Mouth, Daily, PRN for migraine headache, may repeat dose every 2 hours up to a maximum of 3, # 12 tablet, 5 Refills, Acute 10/18/20 8:00:00 EDT, 10/18/19 13:38:00 EDT, Tablet, [facility] #[id number], Please cancel Sumatriptan... Start Date: 10/18/19 Stop Date: 10/18/20 Status: Orderedvenlafaxine 25 mg oral tablet See Instructions, Start with 0.5 (half) tablet once daily x 2 weeks, then increase to 1 tablet daily. New MIGRAINE/ANXIETY medication, # 60 tablet, 2 Refills, Maintenance, 07/17/20 14:19:00 EDT, [facility] #[id number], Please cancel Topiramate.,... Start Date: 07/17/20 Status: Ordered Problem List Condition Effective Dates Status Health Status Informant Asthma(Confirmed) Active Endometriosis(Confirmed) Active Irritable bowel syndrome(Confirmed) Active Migraines(Confirmed) Active Palpitations(Confirmed) Active Social History Social History Type Response Smoking Status Never smoker; Tobacco user i n household: No entered on: 10/22/16 Sex
--- OUTSIDE RECORDS SUMMARY | 2022-03-01 12:51 | XMS_ITS | Continuity of Care Document ---
:1990 Author Organization [facility] Address [address] [place] [address]- Care Team Providers Name Role Phone Sky KOCH, Sarahy Primary Care Physician [place] [facility] [place]s): 02/19/20 - 03/20/20 [facility] [address] [place], [place] [address] Attending Physician: Admtr, Clive8 Admitting Physician: Admtr, Clive8 Referring Physician: Admtr, Ar8 Allergies, Adverse Reactions, Alerts Substance Reaction Severity Status NKA Active Immunizations Given and Recorded Vaccine Date Status Refusal Reason influenza virus vaccine, inactivated1 12/19/19 Given influenza virus vaccine, inactivated 01/21/18 Given hepatitis B adult vaccine 04/06/16 Recorded Human Papillomavirus Vaccine 04/06/16 Recorded tetanus/diphtheria/pertussis, acel(Tdap) 06/25/14 Given 1Result Comment: [facility]: 24096-639-09 Medications albuterol CFC free 90 mcg/inh inhalation aerosol 180 mcg, 2, puffs, Inhalation, Every 4 hours, PRN, # 1 each, Refills 3, Tot. Refills 3, Maintenance,04/23/17 14:40:49, Inhaler, Route to Pharmacy Electronically, [id number], [id number] Start Date: 04/23/17 Status: OrderedFlovent HFA 110 mcg/inh inhalation aerosol 2 puffs, Inhalation, 2 times a day, # 1 each, 11 Refills, Maintenance, 04/23/17 14:41:28, Aerosol Start Date: 04/23/17 Status: Orderedketoconazole 2% topical shampoo 1 applicator, Topically, Daily, Apply once daily to affected area for 14 days, # 120 mL, 0 Refills, Soft Stop, 07/26/19 14:06:00 EDT, [facility] #[id number], 1 applicator Topically Daily,x14 days,Instr:Apply once daily [...] 10/18/20 8:00:00 EDT, 10/18/19 13:38:00 EDT, Tablet, [facility] #[id number], Please cancel Sumatriptan... Start Date: 10/18/19 Stop Date: 10/18/20 Status: OrderedTopamax 50 mg oral tablet See Instructions, 1.5 tablet once daily at bedtime x 2 weeks, then increase to 2 tablets daily at bedtime MIGRAINE PREVENTION, # 60 tablet, 2 Refills, Maintenance, 12/19/19 15:08:00 EDT, [facility] #[id number], 165, cm, 12/19/19 14:53:00 EDT, He... Start Date: 12/19/19 Status: Ordered Problem List Condition Effective Dates Status Health Status Informant Asthma(Confirmed) Active Endometriosis(Confirmed) Active Irritable bowel syndrome(Confirmed) Active Migraines(Confirmed) Active Palpitations(Confirmed) Active Social History Social History Type Response Smoking Status Never smoker; Tobacco user i n household: No entered on: 10/22/16 Sex
--- OUTSIDE RECORDS SUMMARY | 2022-03-01 12:51 | XMS_ITS | Continuity of Care Document ---
:1990 Author Organization [facility] Address [address] [place] [address]- Care Team Providers Name Role Phone Sky KOCH, Sarahy Primary Care Physician Encounter [facility] Date(s): 07/08/20 - 08/07/20 [facility] [address] [place] [address]- Allergies, Adverse Reactions, Alerts Substance Reaction Severity Status NKA Active Immunizations Given and Recorded Vaccine Date Status Refusal Reason influenza virus vaccine, inactivated1 12/19/19 Given influenza virus vaccine, inactivated 01/21/18 Given hepatitis B adult vaccine 04/06/16 Recorded Human Papillomavirus Vaccine 04/06/16 Recorded tetanus/diphtheria/pertussis, acel(Tdap) 06/25/14 Given 1Result Comment: [facility]: 13532-842-75 Medications albuterol CFC free 90 mcg/inh inhalation aerosol 180 mcg, 2, puffs, Inhalation, Every 4 hours, PRN, # 1 each, Refills 3, Tot. Refills 3, Maintenance,04/26/20 10:02:00 EST, Inhaler, Route to Pharmacy Electronically, [id number], [facility] #[id number], 255, cm, 12/19/19... Start Date: 04/26/20 Status: OrderedCBD [...] 3 Refills, Maintenance, 07/17/20 14:25:00 EDT, Capsule, [facility] #[id number], Partial fill upon patient request if the prescription is for a schedule II opi... Start Date: 07/17/20 Status: Orderedrizatriptan 10 mg oral tablet 1 tablet = 10 mg, By Mouth, Daily, PRN for migraine headache, may repeat dose every 2 hours up to a maximum of 3, # 12 tablet, 5 Refills, Acute 10/18/20 8:00:00 EDT, 10/18/19 13:38:00 EDT, Tablet, [facility] #[id number], Please cancel Sumatriptan... Start Date: 10/18/19 Stop Date: 10/18/20 Status: Orderedvenlafaxine 25 mg oral tablet See Instructions, Start with 0.5 (half) tablet once daily x 2 weeks, then increase to 1 tablet daily. New MIGRAINE/ANXIETY medication, # 60 tablet, 2 Refills, Maintenance, 07/17/20 14:19:00 EDT, [facility] #[id number], Please cancel Topiramate.,... Start Date: 07/17/20 Status: Ordered Problem List Condition Effective Dates Status Health Status Informant Asthma(Confirmed) Active Endometriosis(Confirmed) Active Irritable bowel syndrome(Confirmed) Active Migraines(Confirmed) Active Palpitations(Confirmed) Active Social History Social History Type Response Smoking Status Never smoker; Tobacco user i n household: No entered on: 10/22/16 Sex
--- OUTSIDE RECORDS SUMMARY | 2022-03-01 12:51 | XMS_ITS | Continuity of Care Document ---
:[address] [facility] Address [address] [place] [address]- Care Team Providers Name Role Phone Sameer Prater MD Primary Care Physician Encounter [facility] [place] Date(s): 05/20/21 - 06/19/21 [facility] [address] [place] [address]- Attending Physician: Aly Morrissey Admitting Physician: Aly [...] Recorded tetanus/diphtheria/pertussis, acel(Tdap) 06/25/14 Given 1Result Comment: [facility]: 81664-375-77 Medications albuterol CFC free 90 mcg/inh inhalation aerosol 180 mcg, 2, puffs, Inhalation, Every 4 hours, PRN, # 1 each, Refills 3, Tot. Refills 3, Maintenance,04/26/20 10:02:00 EST, Inhaler, Route to Pharmacy Electronically, [id number], [facility] #[id number], 165, cm, 12/19/19... Start Date: 04/26/20 Status: [...] 10/21/21 14:22:00 EDT, 10/21/20 14:21:00 EDT, Tablet, [facility]... Start Date: 10/21/20 Stop Date: 10/21/21 Status: Orderedriboflavin 400 mg oral capsule 1 capsule = 400 mg, By Mouth, Daily, Vitamin B2 for migraine prevention, # 100 capsule, 3 Refills, Maintenance, 07/17/20 14:25:00 EDT, Capsule, [facility] #[id number], Partial fill upon patient request if the prescription is for a schedule II opi... Start Date: 07/17/20 Status: Orderedvenlafaxine 25 mg oral tablet See Instructions, Start with 0.5 (half) tablet once daily x 2 weeks, then increase to 1 tablet daily. New MIGRAINE/ANXIETY medication, # 60 tablet, 2 Refills, Maintenance, 07/17/20 14:19:00 EDT, [facility] #[id number], Please cancel Topiramate.,... Start Date: 07/17/20 Status: Orderedvenlafaxine 50 mg oral tablet 1 tablet = 50 mg, By Mouth, Daily, dose increase , pls d/c prior script, # 30 tablet, 5 Refills, Maintenance, 10/21/20 14:22:00 EDT, Tablet, [facility] #[id number], Partial fill upon patient request if the [...]
--- OUTSIDE RECORDS SUMMARY | 2022-03-01 12:51 | XMS_ITS | Continuity of Care Document ---
:1990 Author Organization [facility] Address [address] [place] [address]- Care Team Providers Name Role Phone Sarahy Swanson MD Primary Care Physician Encounter [place] Date(s): 12/19/19 - 12/26/19 [facility] [address] [place] [address]- [facility] Attending Physician: Sarahy Swanson MD Allergies, Adverse Reactions, Alerts Substance Reaction Severity Status NKA Active Immunizations Given and Recorded Vaccine Date Status Refusal Reason influenza virus vaccine, inactivated1 12/19/19 Given influenza virus vaccine, inactivated 01/21/18 Given Human Papillomavirus Vaccine 04/06/16 Recorded hepatitis B adult vaccine 04/06/16 Recorded tetanus/diphtheria/pertussis, acel(Tdap) 06/25/14 Given 1Result Comment: [facility]: [id number] Medications albuterol CFC free 90 mcg/inh inhalation aerosol 180 mcg, 2, puffs, Inhalation, Every 4 hours, PRN, # 1 each, Refills 3, Tot. Refills 3, Maintenance,04/23/17 14:40:49, Inhaler, Route to Pharmacy Electronically, [id number], [facility] [id number] Start Date: 04/23/17 Status: OrderedFlovent HFA 110 mcg/inh inhalation aerosol 2 puffs, Inhalation, 2 times a day, # 1 each, 11 Refills, Maintenance, 04/23/17 14:41:28, Aerosol Start Date: 04/23/17 Status: Orderedketoconazole 2% topical shampoo 1 applicator, Topically, Daily, Apply once daily to affected area for 14 days, # 120 mL, 0 Refills, Soft Stop, 07/26/19 14:06:00 EDT, [facility] #[id number], 1 applicator Topically Daily,x14 days,Instr:Apply once daily [...] 10/18/20 8:00:00 EDT, 10/18/19 13:38:00 EDT, Tablet, [facility] #[id number], Please cancel Sumatriptan... Start Date: 10/18/19 Stop Date: 10/18/20 Status: OrderedTopamax 50 mg oral tablet See Instructions, 1.5 tablet once daily at bedtime x 2 weeks, then increase to 2 tablets daily at bedtime MIGRAINE PREVENTION, # 60 tablet, 2 Refills, Maintenance, 12/19/19 15:08:00 EDT, [facility] #[id number], 165, cm, 12/19/19 14:53:00 EDT, He... Start Date: 12/19/19 Status: Ordered Problem List Condition Effective Dates Status Health Status Informant Asthma(Confirmed) Active Endometriosis(Confirmed) Active Irritable bowel syndrome(Confirmed) Active Migraines(Confirmed) Active Palpitations(Confirmed) Active Vital Signs Most recent to oldest [Reference Range]: 1 Height 165 cm (12/19/19 2:53 PM) Weight 124.6 kg (12/19/19 2:53 PM) Oxygen Saturation [94-100 %] 100 % (12/19/19 2:53 PM) Pulse Rate [55-90 bpm] 64 bpm (12/19/19 2:53 PM) Body Mass Index [18.5-24.99] 45.77 *>HHI* (12/19/19 2:53 PM) Blood Pressure [90-138/55-84 mm Hg] 122/75 mm Hg (12/19/19 2:53 PM) Temperature [96.8-100.4 DegF] 98.5 DegF (12/19/19 2:53 PM) Mode of Delivery (Oxygen) Room air (12/19/19 2:53 PM) Blood pressure sites Arm, left (12/19/19 2:53 PM) Temperature Route Temporal (12/19/19 2:53 PM) Dry Weight 124.6 kg (12/19/19 2:53 PM) Weight Obtained Via Standing scale (12/19/19 2:53 PM) Social History Social History Type Response Smoking Status Never smoker; Tobacco user i n household: No entered on: 10/22/16 Sex
--- OUTSIDE RECORDS SUMMARY | 2022-03-01 12:51 | XMS_ITS | Continuity of Care Document ---
:1990 Author Organization [facility] Address [address] [place] [address]- Care Team Providers Name Role Phone Moi KOCH, Sameer Delgado Primary Care Physician Encounter [facility] [place] Date(s): 12/08/21 - 01/07/22 [facility] [address] [place] [address]- Attending Physician: Aly Morrissey Admitting Physician: AdmAly bradshaw Referring Physician: Admtr ArDenise Allergies, Adverse Reactions, Alerts No Known Allergies [...] 1Result Comment: [facility]: 98229-934-73 Medications albuterol CFC free 90 mcg/inh inhalation aerosol 180 mcg, 2, puffs, Inhalation, Every 4 hours, PRN, # 1 each, Refills 3, Tot. Refills 3, Maintenance,04/26/20 10:02:00 EST, Inhaler, Route to Pharmacy Electronically, [id number], [facility] #[id number], 165, cm, 12/19/19... Start Date: 04/26/20 Status: [...] tablet, 0 Refills, Maintenance, 12/08/21 16:55:00 EDT, [facility] #0... Start Date: 12/08/21 Status: [...] 10/22/16 Sex Patient Care team information PersonnelName: Sameer Prater MD Address: Address: [address] [place] [address] [facility] [address]
--- OUTSIDE RECORDS SUMMARY | 2022-03-01 12:52 | XMS_ITS | Continuity of Care Document ---
:1990 Author Organization [facility] Address [address] [place] [address]- Care Team Providers Name Role Phone Moi KOCH, Sameer Delgado Primary Care Physician Encounter [facility] [place] Date(s): 07/30/20 - 12/08/20 [facility] [address] [place] [address]- Attending Physician: Sky KOCH, Sarahy Allergies, Adverse Reactions, Alerts Substance Reaction Severity [...] Recorded tetanus/diphtheria/pertussis, acel(Tdap) 06/25/14 Given 1Result Comment: [facility]: 40856-840-82 Medications albuterol CFC free 90 mcg/inh inhalation aerosol 180 mcg, 2, puffs, Inhalation, Every 4 hours, PRN, # 1 each, Refills 3, Tot. Refills 3, Maintenance,04/26/20 10:02:00 EST, Inhaler, Route to Pharmacy Electronically, [id number], [facility] #[id number], 165, cm, 12/19/19... Start Date: 04/26/20 Status: OrderedCBD CBD, Refills 0, Maintenance, 04/26/20 10:05:00 EST, Supply Start Date: 04/26/20 Status: Orderedmagnesium oxide 400 mg oral tablet 1 tablet = 400 mg, By Mouth, Daily, for 30 days, # 30 tablet, 5 Refills, Acute 04/19/21 14:21:00 EST, 10/21/20 14:21:00 EDT, Tablet, [facility] #[id number], Partial fill upon patient request if the [...] 10/21/21 14:22:00 EDT, 10/21/20 14:21:00 EDT, Tablet, [facility]... Start Date: 10/21/20 Stop Date: 10/21/21 Status: Orderedriboflavin 400 mg oral capsule 1 capsule = 400 mg, By Mouth, Daily, Vitamin B2 for migraine prevention, # 100 capsule, 3 Refills, Maintenance, 07/17/20 14:25:00 EDT, Capsule, [facility] #[id number], Partial fill upon patient request if the prescription is for a schedule II opi... Start Date: 07/17/20 Status: Orderedvenlafaxine 25 mg oral tablet See Instructions, Start with 0.5 (half) tablet once daily x 2 weeks, then increase to 1 tablet daily. New MIGRAINE/ANXIETY medication, # 60 tablet, 2 Refills, Maintenance, 07/17/20 14:19:00 EDT, [facility] #[id number], Please cancel Topiramate.,... Start Date: 07/17/20 Status: Orderedvenlafaxine 50 mg oral tablet 1 tablet = 50 mg, By Mouth, Daily, dose increase , pls d/c prior script, # 30 tablet, 5 Refills, Maintenance, 10/21/20 14:22:00 EDT, [facility]t, [facility][id number], Partial fill upon patient request if the [...]
--- OUTSIDE RECORDS SUMMARY | 2022-03-01 12:52 | XMS_ITS | Continuity of Care Document ---
:1990 Author Organization [facility] Address [address] [place] [address]- Care Team Providers Name Role Phone Moi KOCH, Sameer Delgado Primary Care Physician En[place] [facility] [place] 11/[place]/20 - 01/03/[address] [address] Attending Physician: Murtaza Chseter NP Admitting Physician: Murtaza Chester NP Referring Physician: Murtaza Chester NP Allergies, Adverse Reactions, Alerts Substance Reaction Severity [...] Recorded tetanus/diphtheria/pertussis, acel(Tdap) 06/25/14 Given 1Result Comment: [facility]: 54204-793-65 Medications albuterol CFC free 90 mcg/inh inhalation aerosol 180 mcg, 2, puffs, Inhalation, Every 4 hours, PRN, # 1 each, Refills 3, Tot. Refills 3, Maintenance,04/26/20 10:02:00 EST, Inhaler, Route to Pharmacy Electronically, [id number], [facility] #[id number], 165, cm, 12/19/19... Start Date: 04/26/20 Status: OrderedCBD CBD, Refills 0, Maintenance, 04/26/20 10:05:00 EST, Supply Start Date: 04/26/20 Status: Orderedmagnesium oxide 400 mg oral tablet 1 tablet = 400 mg, By Mouth, Daily, for 30 days, # 30 tablet, 5 Refills, Acute 04/19/21 14:21:00 EST, 10/21/20 14:21:00 EDT, Tablet, [facility] #[id number], Partial fill upon patient request if the [...] 10/21/21 14:22:00 EDT, 10/21/20 14:21:00 EDT, Tablet, [facility]... Start Date: 10/21/20 Stop Date: 10/21/21 Status: Orderedriboflavin 400 mg oral capsule 1 capsule = 400 mg, By Mouth, Daily, Vitamin B2 for migraine prevention, # 100 capsule, 3 Refills, Maintenance, 07/17/20 14:25:00 EDT, Capsule, [facility] #[id number], Partial fill upon patient request if the prescription is for a schedule II opi... Start Date: 07/17/20 Status: Orderedvenlafaxine 25 mg oral tablet See Instructions, Start with 0.5 (half) tablet once daily x 2 weeks, then increase to 1 tablet daily. New MIGRAINE/ANXIETY medication, # 60 tablet, 2 Refills, Maintenance, 07/17/20 14:19:00 EDT, [facility] #[id number], Please cancel Topiramate.,... Start Date: 07/17/20 Status: Orderedvenlafaxine 50 mg oral tablet 1 tablet = 50 mg, By Mouth, Daily, dose increase , pls d/c prior script, # 30 tablet, 5 Refills, Maintenance, 10/21/20 14:22:00 EDT, Tablet, [facility] #[id number], Partial fill upon patient request if the [...]
--- OUTSIDE RECORDS SUMMARY | 2022-03-01 12:52 | XMS_ITS | Continuity of Care Document ---
:1990 Author Organization [facility] Address [address] [place] [address]- Care Team Providers Name Role Phone Sarahy Swanson MD Primary Care Physician Encounter [facility] [place] Date(s): 04/12/19 - 04/19/19 [facility] [address] [place] [address]- [facility] Attending Physician: Sarahy Swanson MD Allergies, [...] Maintenance,04/23/17 14:40:49, Inhaler, Route to Pharmacy Electronically, [id number], [facility] [id number] Start Date: 04/23/17 Status: OrderedFlovent HFA 110 mcg/inh inhalation aerosol 2 puffs, Inhalation, 2 times a day, # 1 each, 11 Refills, Maintenance, 04/23/17 14:41:28, Aerosol Start Date: 04/23/17 Status: OrderedMedrol Dosepak 4 mg oral tablet 1 pack/packet, By Mouth, Once, # 21 tablet, 0 Refills, Soft Stop, 04/12/19 14:21:00 EST, Tablet, [facility] #[id number], 165, cm, 04/12/19 14:04:00 EST, Height, 127, kg, 04/12/19 14:04:00 EST, DryWeight Start Date: 04/12/19 Status: OrderedMirena 52 mg intrauterine device 1 each = 52 mg, Once, inserted 2018, 0 Refills, Maintenance, 04/01/18 14:52:58 EST Start Date: 04/01/18 Status: Orderednortriptyline 25 mg oral capsule 25 mg, 1, capsule, By Mouth, Daily at bedtime, MIGRAINE PREVENTION, # 30 capsule, Refills 5, Tot. Refills 5, Maintenance, 04/12/19 14:29:00 EST, Route to Pharmacy Electronically, [facility] #[id number], 165, cm, 04/12/19 14:04:00 EST, Height, 127... Start Date: 04/12/19 Status: OrderedSUMAtriptan 100 mg oral tablet 1 tablet = 100 mg, By Mouth, Daily, PRN for migraine headache, may repeat dose after 2 hours up to amaximum of 2. Take first dose with Ibuprofen., # 9 tablet, 3 Refills, Acute 04/12/20 8:00:00 EST, 04/12/19 14:22:00 EST, Tablet, [facility]... Start Date: 04/12/19 Stop Date: 04/12/20 Status: Ordered Problem List Condition Effective Dates Status Health Status Informant Asthma(Confirmed) Active Endometriosis(Confirmed) Active Irritable bowel syndrome(Confirmed) Active Migraines(Confirmed) Active Palpitations(Confirmed) Active Vital Signs Most recent to oldest [Reference Range]: 1 Height 165 cm (04/12/19 2:04 PM) Weight 127 kg (04/12/19 2:04 PM) Oxygen Saturation [94-100 %] 98 % (04/12/19 2:04 PM) Pulse Rate [55-90 bpm] 104 bpm *H* (04/12/19 2:04 PM) Body Mass Index [18.5-24.99] 46.65 *>HHI* (04/12/19 2:04 PM) Blood Pressure [90-138/55-84 mm Hg] 118/58 mm Hg (04/12/19 2:04 PM) Temperature [96.8-100.4 DegF] 98.4 DegF (04/12/19 2:04 PM) Mode of Delivery (Oxygen) Room air (04/12/19 2:04 PM) Blood pressure sites Arm, left (04/12/19 2:04 PM) Temperature Route Oral (04/12/19 2:04 PM) Dry Weight 127 kg (04/12/19 2:04 PM) Weight Obtained Via Standing scale (04/12/19 2:04 PM) Social History Social History Type Response Smoking Status Never smoker; Tobacco user i n household: No entered on: 10/22/16 Sex
--- OUTSIDE RECORDS SUMMARY | 2022-03-01 12:52 | XMS_ITS | Continuity of Care Document ---
:1990 Author Organization [facility] Address Unavailable , Care Team Providers Name Role Phone Sameer Prater MD Primary Care Physician [place] [facility] [place] [id number] Date(s): 01/30/21 - 03/01/21 [facility] Attending Physician: Aly Morrissey Admitting Physician: Aly Morrissey Referring Physician: Aly Morrissey Allergies, Adverse Reactions, Alerts Substance Reaction Severity [...] Recorded tetanus/diphtheria/pertussis, acel(Tdap) 06/25/14 Given 1Result Comment: [facility]: 98206-991-78 Medications albuterol CFC free 90 mcg/inh inhalation aerosol 180 mcg, 2, puffs, Inhalation, Every 4 hours, PRN, # 1 each, Refills 3, Tot. Refills 3, Maintenance,04/26/20 10:02:00 EST, Inhaler, Route to Pharmacy Electronically, [id number], [facility] #[id number], 165, cm, 12/19/19... Start Date: 04/26/20 Status: OrderedCBD CBD, Refills 0, Maintenance, 04/26/20 10:05:00 EST, Supply Start Date: 04/26/20 Status: Orderedmagnesium oxide 400 mg oral tablet 1 tablet = 400 mg, By Mouth, Daily, for 30 days, # 30 tablet, 5 Refills, Acute 04/19/21 14:21:00 EST, 10/21/20 14:21:00 EDT, Tablet, [facility] #[id number], Partial fill upon patient request if the [...] 10/21/21 14:22:00 EDT, 10/21/20 14:21:00 EDT, Tablet, [facility] Start Date: 10/21/20 Stop Date: 10/21/21 Status: Orderedriboflavin 400 mg oral capsule 1 capsule = 400 mg, By Mouth, Daily, Vitamin B2 for migraine prevention, # 100 capsule, 3 Refills, Maintenance, 07/17/20 14:25:00 EDT, Capsule, [facility] #[id number], Partial fill upon patient request if the prescription is for a schedule II opi... Start Date: 07/17/20 Status: Orderedvenlafaxine 25 mg oral tablet See Instructions, Start with 0.5 (half) tablet once daily x 2 weeks, then increase to 1 tablet daily. New MIGRAINE/ANXIETY medication, # 60 tablet, 2 Refills, Maintenance, 07/17/20 14:19:00 EDT, [facility] #[id number], Please cancel Topiramate.,... Start Date: 07/17/20 Status: Orderedvenlafaxine 50 mg oral tablet 1 tablet = 50 mg, By Mouth, Daily, dose increase , pls d/c prior script, # 30 tablet, 5 Refills, Maintenance, 10/21/20 14:22:00 EDT, Tablet, [facility] #[id number], Partial fill upon patient request if the [...]
--- OUTSIDE RECORDS SUMMARY | 2022-03-01 12:52 | XMS_ITS | Continuity of Care Document ---
:1990 Author Organization [facility] Address [address] [place] [address]- Care Team Providers Name Role Phone Sky KOCH, Sarahy Primary Care Physician Encounter [facility] Date(s): 10/13/19 - 11/12/19 [facility] [address] [place] [address]- [facility] Allergies, Adverse Reactions, Alerts Substance Reaction Severity [...] Maintenance,04/23/17 14:40:49, Inhaler, Route to Pharmacy Electronically, [id number], [facility] [id number] Start Date: 04/23/17 Status: OrderedFlovent HFA 110 mcg/inh inhalation aerosol 2 puffs, Inhalation, 2 times a day, # 1 each, 11 Refills, Maintenance, 04/23/17 14:41:28, Aerosol Start Date: 04/23/17 Status: Orderedketoconazole 2% topical shampoo 1 applicator, Topically, Daily, Apply once daily to affected area for 14 days, # 120 mL, 0 Refills, Soft Stop, 07/26/19 14:06:00 EDT, [facility] #[id number], 1 applicator Topically Daily,x14 days,Instr:Apply once daily [...] 10/18/20 8:00:00 EDT, 10/18/19 13:38:00 EDT, Tablet, [facility] #[id number], Please cancel Sumatriptan... Start Date: 10/18/19 Stop Date: 10/18/20 Status: OrderedTopamax 50 mg oral tablet See Instructions, 0.5 tablet once daily at bedtime x 2 weeks, then increase to 1 tablet daily at bedtime MIGRAINE PREVENTION, # 60 tablet, 2 Refills, Maintenance, 10/18/19 13:42:00 EDT, [facility] #[id number], please cancel Nortriptyline, 165, c... Start Date: 10/18/19 Status: Ordered Problem List Condition Effective Dates Status Health Status Informant Asthma(Confirmed) Active Endometriosis(Confirmed) Active Irritable bowel syndrome(Confirmed) Active Migraines(Confirmed) Active Palpitations(Confirmed) Active Social History Social History Type Response Smoking Status Never smoker; Tobacco user i n household: No entered on: 10/22/16 Sex
--- OUTSIDE RECORDS SUMMARY | 2022-03-01 12:52 | XMS_ITS | Continuity of Care Document ---
:1990 Author Organization [facility] Address [address] [place] [id number]- Care Team Providers Name Role Phone Moi KOCH, Sameer Delgado Primary Care Physician [place] [facility] [place](s): 12/04/20 - 01/03/[address] [address] Attending Physician: Admtr, Ar8 Admitting Physician: Admtr, Ar8 Referring Physician: Admtr, Ar8 Allergies, Adverse Reactions, [...] tetanus/diphtheria/pertussis, acel(Tdap) 06/25/14 Given 1Result Comment: [facility]: [id number] Medications albuterol CFC free 90 mcg/inh inhalation aerosol 180 mcg, 2, puffs, Inhalation, Every 4 hours, PRN, # 1 each, Refills 3, Tot. Refills 3, Maintenance,04/26/20 10:02:00 EST, Inhaler, Route to Pharmacy Electronically, [id number], [facility] #[id number], 165, cm, 12/19/19... Start Date: 04/26/20 Status: OrderedCBD CBD, Refills 0, Maintenance, 04/26/20 10:05:00 EST, Supply Start Date: 04/26/20 Status: Orderedmagnesium oxide 400 mg oral tablet 1 tablet = 400 mg, By Mouth, Daily, for 30 days, # 30 tablet, 5 Refills, Acute 04/19/21 14:21:00 EST, 10/21/20 14:21:00 EDT, Tablet, [facility] #[id number], Partial fill upon patient request if the [...] 10/21/21 14:22:00 EDT, 10/21/20 14:21:00 EDT, Tablet, [facility] Start Date: 10/21/20 Stop Date: 10/21/21 Status: Orderedriboflavin 400 mg oral capsule 1 capsule = 400 mg, By Mouth, Daily, Vitamin B2 for migraine prevention, # 100 capsule, 3 Refills, Maintenance, 07/17/20 14:25:00 EDT, Capsule, [facility] #[id number], Partial fill upon patient request if the prescription is for a schedule II opi... Start Date: 07/17/20 Status: Orderedvenlafaxine 25 mg oral tablet See Instructions, Start with 0.5 (half) tablet once daily x 2 weeks, then increase to 1 tablet daily. New MIGRAINE/ANXIETY medication, # 60 tablet, 2 Refills, Maintenance, 07/17/20 14:19:00 EDT, [facility] #[id number], Please cancel Topiramate.,... Start Date: 07/17/20 Status: Orderedvenlafaxine 50 mg oral tablet 1 tablet = 50 mg, By Mouth, Daily, dose increase , pls d/c prior script, # 30 tablet, 5 Refills, Maintenance, 10/21/20 14:22:00 EDT, Tablet, [facility] #[id number], Partial fill upon patient request if the [...]
--- OUTSIDE RECORDS SUMMARY | 2022-03-01 12:52 | XMS_ITS | Continuity of Care Document ---
:1990 Author Organization [facility] Address [address] [place] [address]- Care Team Providers Name Role Phone Sameer Prater MD Primary Care Physician [place] [facility] [place] 09/10/21 - 10/10/21 [facility] [address] [place] [address]- Attending Physician: Aly Morrissey Admitting Physician: Aly [...] tetanus/diphtheria/pertussis, acel(Tdap) 06/25/14 Given 1Result Comment: [facility] [place]: [id number] Medications albuterol CFC free 90 mcg/inh inhalation aerosol 180 mcg, 2, puffs, Inhalation, Every 4 hours, PRN, # 1 each, Refills 3, Tot. Refills 3, Maintenance,04/26/20 10:02:00 EST, Inhaler, Route to Pharmacy Electronically, [id number], [facility] #[id number], 165, cm, 12/19/19... Start Date: 04/26/20 Status: [...] 10/21/21 14:22:00 EDT, 10/21/20 14:21:00 EDT, Tablet, [facility] Start Date: 10/21/20 Stop Date: 10/21/21 Status: Orderedriboflavin 400 mg oral capsule 1 capsule = 400 mg, By Mouth, Daily, Vitamin B2 for migraine prevention, # 100 capsule, 3 Refills, Maintenance, 07/17/20 14:25:00 EDT, Capsule, [facility] #[id number], Partial fill upon patient request if the prescription is for a schedule II opi... Start Date: 07/17/20 Status: Orderedvenlafaxine 25 mg oral tablet See Instructions, Start with 0.5 (half) tablet once daily x 2 weeks, then increase to 1 tablet daily. New MIGRAINE/ANXIETY medication, # 60 tablet, 2 Refills, Maintenance, 07/17/20 14:19:00 EDT, [facility] #[id number], Please cancel Topiramate.,... Start Date: 07/17/20 Status: Orderedvenlafaxine 50 mg oral tablet 1 tablet = 50 mg, By Mouth, Daily, dose increase , pls d/c prior script, # 30 tablet, 5 Refills, Maintenance, 10/21/20 14:22:00 EDT, Tablet, [facility] #[id number], Partial fill upon patient request if the [...]
--- OUTSIDE RECORDS SUMMARY | 2022-03-01 12:52 | XMS_ITS | Continuity of Care Document ---
:[address] [facility] Address [address] [place] [address]- Care Team Providers Name Role Phone Sameer Prater MD Primary Care Physician [place] [facility] [place] - 09/17/[facility] [address] [place] [address]- Encounter Diagnosis Plantar fasciitis (Discharge Diagnosis) - 09/10/21 Attending Physician: Tracey Borrero DO Referring Physician: Sameer Prater MD Allergies, Adverse [...] tetanus/diphtheria/pertussis, acel(Tdap) 06/25/14 Given 1Result Comment: [facility]: [id number] Medications albuterol CFC free 90 mcg/inh inhalation aerosol 180 mcg, 2, puffs, Inhalation, Every 4 hours, PRN, # 1 each, Refills 3, Tot. Refills 3, Maintenance,04/26/20 10:02:00 EST, Inhaler, Route to Pharmacy Electronically, [id number], [facility] #[id number], 165, cm, 12/19/19... Start Date: 04/26/20 Status: [...] 10/21/21 14:22:00 EDT, 10/21/20 14:21:00 EDT, Tablet, [facility] Start Date: 10/21/20 Stop Date: 10/21/21 Status: Orderedriboflavin 400 mg oral capsule 1 capsule = 400 mg, By Mouth, Daily, Vitamin B2 for migraine prevention, # 100 capsule, 3 Refills, Maintenance, 07/17/20 14:25:00 EDT, Capsule, [facility] #[id number], Partial fill upon patient request if the prescription is for a schedule II opi... Start Date: 07/17/20 Status: Orderedvenlafaxine 25 mg oral tablet See Instructions, Start with 0.5 (half) tablet once daily x 2 weeks, then increase to 1 tablet daily. New MIGRAINE/ANXIETY medication, # 60 tablet, 2 Refills, Maintenance, 07/17/20 14:19:00 EDT, [facility] #[id number], Please cancel Topiramate.,... Start Date: 07/17/20 Status: Orderedvenlafaxine 50 mg oral tablet 1 tablet = 50 mg, By Mouth, Daily, dose increase , pls d/c prior script, # 30 tablet, 5 Refills, Maintenance, 10/21/20 14:22:00 EDT, Tablet, [facility] #[id number], Partial fill upon patient request if the prescription is for a schedule II opioid... Start Date: 10/21/20 Stop Date: 04/19/21 Status: Ordered Problem List Condition Effective Dates Status Health Status Informant Asthma(Confirmed) Active Endometriosis(Confirmed) Active Irritable bowel syndrome(Confirmed) Active Migraines(Confirmed) Active Obstructive sleep apnea(Confirmed) Active Palpitations(Confirmed) Active Diagnosis Diagnosis Type Effective Dates Health Status Clinical In formant Service Plantar Discharge 09/10/21 fasciitis Diagnosis Social History Social History Type Response Smoking Status Never smoker; Tobacco user i n household: No entered on: 10/22/16 Sex
--- OUTSIDE RECORDS SUMMARY | 2022-03-01 12:52 | XMS_ITS | Continuity of Care Document ---
:1990 Author Organization [facility] Address [address] [place] [address]- Care Team Providers Name Role Phone Sarahy Swanson MD Primary Care Physician [place] [facility] [place]19 [facility] [address] [place] [address]- [facility] Attending Physician: Sarahy Swanson MD Allergies, [...] Maintenance,04/23/17 14:40:49, Inhaler, Route to Pharmacy Electronically, [id number], [id number] Start Date: 04/23/17 Status: OrderedFlovent HFA 110 mcg/inh inhalation aerosol 2 puffs, Inhalation, 2 times a day, # 1 each, 11 Refills, Maintenance, 04/23/17 14:41:28, Aerosol Start Date: 04/23/17 Status: Orderedfluconazole 150 mg oral tablet See Instructions, Take 2 tablets once now, then in 7 days repeat dose by taking 2 tablets once again., # 4 tablet, 0 Refills, Soft Stop, 04/29/20 14:05:00 EDT, [facility] #[id number], 165, cm, 04/12/19 14:04:00 EST, Height, 127, kg, 04/12/19 14:0... Start Date: 07/26/19 Status: Orderedketoconazole 2% topical shampoo 1 applicator, Topically, Daily, Apply once daily to affected area for 14 days, # 120 mL, 0 Refills, Soft Stop, 07/26/19 14:06:00 EDT, [facility] #[id number], 1 applicator Topically Daily,x14 days,Instr:Apply once daily [...] Maintenance,07/26/19 13:54:00 EDT, Route to Pharmacy Electronically, [facility] #[id number], please note dose increase, 165, cm, 04/12/19 14:04:00 EST, Heigh... Start Date: 07/26/19 Stop Date: 01/22/20 Status: OrderedSUMAtriptan 100 mg oral tablet 1 tablet = 100 mg, By Mouth, Daily, PRN for migraine headache, may repeat dose after 2 hours up to amaximum of 2. Take first dose with Ibuprofen., # 9 tablet, 5 Refills, Acute 07/26/20 8:00:00 EDT, 07/26/19 13:56:00 EDT, Tablet, [facility]... Start Date: 07/26/19 Stop Date: 07/26/20 Status: Ordered Problem List Condition Effective Dates Status Health Status Informant Asthma(Confirmed) Active Endometriosis(Confirmed) Active Irritable bowel syndrome(Confirmed) Active Migraines(Confirmed) Active Palpitations(Confirmed) Active Social History Social History Type Response Smoking Status Never smoker; Tobacco user i n household: No entered on: 10/22/16 Sex
--- OUTSIDE RECORDS SUMMARY | 2022-03-01 12:52 | XMS_ITS | Continuity of Care Document ---
:[address] [facility] Address [address] [place] [address]- Care Team Providers Name Role Phone Sameer Prater MD Primary Care Physician Encounter [facility] [place] Date(s): 11/08/20 - 12/08/20 [facility] [address] [place] [address]- Attending Physician: Aly Mrorissey Admitting Physician: Aly Morrissey Referring Physician: AdmtrAly Allergies, Adverse Reactions, Alerts Substance Reaction Severity [...] Comment: [facility]: [id number] Medications albuterol CFC free 90 mcg/inh inhalation aerosol 180 mcg, 2, puffs, Inhalation, Every 4 hours, PRN, # 1 each, Refills 3, Tot. Refills 3, Maintenance,04/26/20 10:02:00 EST, Inhaler, Route to Pharmacy Electronically, [id number], [facility] #[id number], 165, cm, 12/19/19... Start Date: 04/26/20 Status: OrderedCBD CBD, Refills 0, Maintenance, 04/26/20 10:05:00 EST, Supply Start Date: 04/26/20 Status: Orderedmagnesium oxide 400 mg oral tablet 1 tablet = 400 mg, By Mouth, Daily, for 30 days, # 30 tablet, 5 Refills, Acute 04/19/21 14:21:00 EST, 10/21/20 14:21:00 EDT, Tablet, [facility] #[id number], Partial fill upon patient request if the [...] 10/21/21 14:22:00 EDT, 10/21/20 14:21:00 EDT, Tablet, [facility]... Start Date: 10/21/20 Stop Date: 10/21/21 Status: Orderedriboflavin 400 mg oral capsule 1 capsule = 400 mg, By Mouth, Daily, Vitamin B2 for migraine prevention, # 100 capsule, 3 Refills, Maintenance, 07/17/20 14:25:00 EDT, Capsule, [facility] #[id number], Partial fill upon patient request if the prescription is for a schedule II opi... Start Date: 07/17/20 Status: Orderedvenlafaxine 25 mg oral tablet See Instructions, Start with 0.5 (half) tablet once daily x 2 weeks, then increase to 1 tablet daily. New MIGRAINE/ANXIETY medication, # 60 tablet, 2 Refills, Maintenance, 07/17/20 14:19:00 EDT, [facility] #[id number], Please cancel Topiramate.,... Start Date: 07/17/20 Status: Orderedvenlafaxine 50 mg oral tablet 1 tablet = 50 mg, By Mouth, Daily, dose increase , pls d/c prior script, # 30 tablet, 5 Refills, Maintenance, 10/21/20 14:22:00 EDT, Tablet, [facility] #[id number], Partial fill upon patient request if the [...]
--- OUTSIDE RECORDS SUMMARY | 2022-03-01 12:52 | XMS_ITS | Continuity of Care Document ---
:1990 Author Organization [facility] Address [address] [place] [address]- Care Team Providers Name Role Phone Sameer Prater MD Primary Care Physician Encounter [facility] [place] Date(s): 02/19/21 - 06/19/21 [facility] [address] [place] [address]- Attending Physician: Sameer Prater MD Allergies, Adverse Reactions, [...] Recorded tetanus/diphtheria/pertussis, acel(Tdap) 06/25/14 Given 1Result Comment: [facility]: [id number] Medications albuterol CFC free 90 mcg/inh inhalation aerosol 180 mcg, 2, puffs, Inhalation, Every 4 hours, PRN, # 1 each, Refills 3, Tot. Refills 3, Maintenance,04/26/20 10:02:00 EST, Inhaler, Route to Pharmacy Electronically, [id number], [facility] #[id number], 165, cm, 12/19/19... Start Date: 04/26/20 Status: [...] 10/21/21 14:22:00 EDT, 10/21/20 14:21:00 EDT, Tablet, [facility] Start Date: 10/21/20 Stop Date: 10/21/21 Status: Orderedriboflavin 400 mg oral capsule 1 capsule = 400 mg, By Mouth, Daily, Vitamin B2 for migraine prevention, # 100 capsule, 3 Refills, Maintenance, 07/17/20 14:25:00 EDT, Capsule, [facility] #[id number], Partial fill upon patient request if the prescription is for a schedule II opi... Start Date: 07/17/20 Status: Orderedvenlafaxine 25 mg oral tablet See Instructions, Start with 0.5 (half) tablet once daily x 2 weeks, then increase to 1 tablet daily. New MIGRAINE/ANXIETY medication, # 60 tablet, 2 Refills, Maintenance, 07/17/20 14:19:00 EDT, [facility] #[id number], Please cancel Topiramate.,... Start Date: 07/17/20 Status: Orderedvenlafaxine 50 mg oral tablet 1 tablet = 50 mg, By Mouth, Daily, dose increase , pls d/c prior script, # 30 tablet, 5 Refills, Maintenance, 10/21/20 14:22:00 EDT, Tablet, [facility] #[id number], Partial fill upon patient request if the [...]
--- OUTSIDE RECORDS SUMMARY | 2022-03-01 12:52 | XMS_ITS | Continuity of Care Document ---
:[address] [facility] Address [address] [place] [address]- Care Team Providers Name Role Phone Moi KOCH, Sameer Delgado Primary Care Physician Encounter [facility] [place] Date(s): 12/08/21 - 12/15/21 [facility] [address] [place] [address]- Encounter Diagnosis COVID-19 (Discharge Diagnosis) - 12/08/21 Asthma (Discharge Diagnosis) - 12/08/21 Obstructive sleep apnea (Discharge Diagnosis) - 12/08/21 Generalized body aches (Discharge Diagnosis) - 12/08/21 Cough (Discharge Diagnosis) - 12/08/21 Attending Physician: Toan Ruff Allergies, Adverse Reactions, Alerts No Known Allergies Immunizations Given and Recorded Vaccine Date Status Refusal Reason SARS-CoV-2 (COVID-19) mRNA BNT-162b2 vac 07/13/20 Recorde d SARS-CoV-2 (COVID-19) mRNA BNT-162b2 vac 06/20/20 Recorde d influenza virus vaccine, inactivated1 12/19/19 Given influenza virus vaccine, inactivated 01/21/18 Given hepatitis B adult vaccine 04/06/16 Recorded Human Papillomavirus Vaccine 04/06/16 Recorded tetanus/diphtheria/pertussis, acel(Tdap) 06/25/14 Given 1Result Comment: [facility]: [id number] Medications albuterol CFC free 90 mcg/inh inhalation aerosol 180 mcg, 2, puffs, Inhalation, Every 4 hours, PRN, # 1 each, Refills 3, Tot. Refills 3, Maintenance,04/26/20 10:02:00 EST, Inhaler, Route to Pharmacy Electronically, [id number], [facility] #[id number], 165, cm, 12/19/19... Start Date: 04/26/20 Status: [...] tablet, 0 Refills, Maintenance, 12/08/21 16:55:00 EDT, [facility]... Start Date: 12/08/21 Status: Ordered Problem List Condition Effective Dates Status Health Status Informant Asthma(Confirmed) Active Endometriosis(Confirmed) Active Irritable bowel syndrome(Confirmed) Active Migraines(Confirmed) Active Obstructive sleep apnea(Confirmed) Active Palpitations(Confirmed) Active Diagnosis Diagnosis Type Effective Dates Health Clinical Infor mant Status Service COVID-19 Discharge 12/08/21 Diagnosis Asthma Discharge 12/08/21 Diagnosis Obstructive sleep Discharge 12/08/21 apnea Diagnosis Generalized body Discharge 12/08/21 aches Diagnosis Cough Discharge 12/08/21 Diagnosis Social History Social History Type Response Smoking Status Never smoker; Tobacco user i n household: No entered on: 10/22/16 Sex Care Team PersonnelName: Sameer Prater MD Address: [address] [place] [address] Adult [facility] Pediatric [facility] [address]
== END 2022-03-01 12:56 | disposition home or self-care (01) ==
LOC: HO.ED 12:49
PROVIDERS: Emergency Provider Emergency Medicine; PCP Internal Medicine
DX: J40 Bronchitis, not specified as acute or chronic (principal); R06.02 Shortness of breath; R05.9 Cough, unspecified; Z20.822 Contact with and (suspected) exposure to COVID-19
CPT/HCPCS: 87502; 87635; 99283

== ENCOUNTER 2022-03-27 12:33 | Emergency (ER) | payer MEDICAID, SELFPAY ==
[2022-03-27 12:54] VITALS: BP 147/91; PULSE 90; RESP 17; TEMP 36.1; O2SAT 98; BMI 45.1
--- NOTE | 2022-03-27 12:54 | ED.URI ---
HPI - URI/Sore Throat General Chief Complaint: Upper Respiratory Symptoms Stated Complaint: COVID + Time Seen by Provider: 03/27/22 13:02 Source: patient Mode of arrival: ambulatory Limitations: no limitations History of Present Illness HPI Narrative: Patient is a 31 year old female with pmhx of asthma, endometriosis who presents to the emergency department reporting that she tested positive for COVID-19 2 days ago, started Paxlovid 2 days ago. Yesterday she was feeling slight improvement. However, today she awoke complaining of chest discomfort, burning sensation and pressure, shortness of breath. She reports having COVID-19 in November 2021 as well. States vaccination x3 for COVID-19. Denies tobacco usage, oral contraceptive, hx of DVT/PE/mailgnancy, no recent prolonged immobilization or surgery. Related Data Previous Rx's Medication Instructions Recorded azithromycin 250 mg tablet See Rx Instructions PO .COMPLEX #6 03/01/22 tabs benzonatate 100 mg capsule 100 mg PO TID PRN cough #15 caps 03/01/22 prednisone 20 mg tablet 40 mg PO DAILY 5 days #10 tabs 03/01/22 Allergies Allergy/AdvReac Type Severity Reaction Status Date / Time No Known Allergies Allergy Mild NONE Verified 11/12/20 22:09 Review of Systems Review of Systems: Constitutional: No fever. No chills. No weakness. Positive fatigue. ENT/ Mouth: No Ear Pain, positive Nasal Congestion, positive sore throat, No Rhinorrhea, No Swallowing Difficulty Skin: No rash or itching. Cardiovascular: Positive chest pain. No palpitations. Respiratory: Positive shortness of breath. Positive cough. No sputum production. Gastrointestinal: No nausea. No vomiting. No diarrhea. No abdominal pain. Genitourinary: No burning micturition. No urinary frequency. Neurologic: No headache. No dizziness. No syncope. No numbness or tingling in the extremities. Musculoskeletal: No muscle pain. No back pain. No joint pain or stiffness. Yes all other systems are reviewed and are negative [facility] Past Medical History Attestation statement: The following information was validated with the patient. Source: old records reviewed Medical History Asthma Endometriosis Migraines Social History Social History (Reviewed 03/27/22 @ 13:07 by JAY Cervantes Advance Directives: No Advance Directives Information Provided: Yes Physical Exam Vital Signs: Appearance: Alert.?Oriented to person, place and time. No acute distress.?Normal affect. Eyes: Pupils equal, round and reactive to light.? ENT: TM normal bilaterally. Pharynx normal.?? Neck: Normal inspection.? Neck supple.??No cervical adenopathy CVS: Heart sounds normal. Normal heart rate and rhythm.? Pulses normal.?? Respiratory: No respiratory distress.? Lung sounds clear to auscultation bilaterally?? Abdomen: Soft and non-tender. Normoactive bowel sounds. Skin: Skin warm and dry.? Normal skin color.? ? Extremities: No lower extremity edema.? Neuro: Moves all extremities spontaneously. Sensation intact bilaterally. No motor deficits. Ambulates with normal steady gait. Medical Decision Making Medical Decision Making MDM Narrative: Patient is a 31 year old female with pmhx of asthma, endometriosis who presents to the emergency department reporting that she tested positive for COVID-19 2 days ago, started Paxlovid 2 days ago from PCP. Overall she is well-appearing, nontoxic. Vital signs are stable. Without tachycardia, tachypnea, hypoxia, or fever. PERC negative, unlikely PE. LSCTA, no respiratory distress, low suspicion for ACS at this time. Chest pain is reproducible to palpation, deep inspiration, and cough. At this time does not appear consistent with acute exacerbation of asthma. Discussed expectations of COVID-19 symptoms. Reviewed worrisome signs and symptoms that would warrant re-evaluation in the emergency department. Advised outpatient follow-up with primary care provider as needed for persistent symptoms. All questions answered. She departed in stable condition. Ambulatory with a steady gait. Differential Diagnosis Differential Diagnoses: The differential diagnosis associated with the presentation includes (as noted above.) Tests considered The following testing was considered but not selected: Chest x-ray considered, however LS CTA, no respiratory distress, no hypoxia, no tachypnea, low suspicion for pneumonia, chest x-ray deferred at this time. Chronic Conditions Patient?s care impacted by: Other (Asthma) Discharge Plan Discharge Clinical Impression: COVID-19 Patient Disposition: Home, Self-Care Instructions: COVID-19 (Coronavirus Disease 2019) (ED) Additional Instructions: Continue taking Paxlovid as prescribed. Be sure to rest, stay well hydrated drinking plenty of fluids, eat small frequent meals. Tylenol/ibuprofen can be used as needed for fever/pain. Ihrq-lsw-offrnjt cold medications may be helpful as well for symptoms. Saline nasal spray, humidifier may be helpful for nasal congestion. You may return to the emergency department with any new or worsening symptoms or concerns. Follow-up with your primary care provider as needed. Soonest end isolation/ return to work date would be 03/30/2021. You should still continue to wear mask for 5 days after this. Prescriptions: No Action azithromycin 250 mg tablet See Rx Instructions .ROUTE .COMPLEX Qty: 6 0RF Rx Instructions: For 250 mg dose pack: take 500 mg today (day 1), then 250 mg for 4 days (days 2-5) benzonatate 100 mg capsule 100 mg PO TID PRN (Reason: cough) Qty: 15 0RF prednisone 20 mg tablet 40 mg PO DAILY 5 Days Qty: 10 0RF Stand Alone Forms: Work/School Release
== END 2022-03-27 13:14 | disposition home or self-care (01) ==
PROVIDERS: Emergency Provider Student in an Organized Health Care Education/Training Program; PCP Internal Medicine
DX: U07.1 COVID-19 (principal)
CPT/HCPCS: 99282

== ENCOUNTER 2022-06-08 08:11 | Emergency (ER) | payer MEDICAID, SELFPAY ==
[2022-06-08 08:14] VITALS: BP 139/67; PULSE 79; RESP 18; TEMP 36.1; O2SAT 97; BMI 46.7
--- OUTSIDE RECORDS SUMMARY | 2022-06-08 08:43 | XMS_ITS | Continuity of Care Document ---
:1990 Author Organization [facility] Address [address] [place] [address]- Care Team Providers Name Role Phone Moi KOCH, Sameer Delgado Primary Care Physician Encounter [facility] Date(s): 03/25/22 - 04/24/22 [facility] [address] [place] [address]- Encounter Diagnosis COVID-19 (Discharge Diagnosis) - 03/25/22 Allergies, Adverse Reactions, Alerts No Known Allergies [...] Recorded tetanus/diphtheria/pertussis, acel(Tdap) 06/25/14 Given 1Result Comment: [facility] #: [id number] Comment: [facility]: [id number] Medications albuterol CFC free 90 mcg/inh inhalation aerosol 180 mcg, 2, puffs, Inhalation, Every 4 hours, PRN, # 1 each, Refills 3, Tot. Refills 3, Maintenance,04/26/20 10:02:00 EST, Inhaler, Route to Pharmacy Electronically, [id number], [facility] #[id number], 165, cm, 12/19/19... Start Date: 04/26/20 Status: [...] food, # 30 tablet, 0 Refills, Maintenance, 03/25/22 12:44:00 EST, [facility] #0... Start Date: 03/25/22 Status: Ordered Problem List Condition Confirmation Course Effective Dates Status Health I nformant Status Asthma Confirmed Active Endometriosis Confirmed Active Irritable bowel Confirmed Active syndrome Migraines Confirmed Active Obstructive sleep Confirmed Active apnea Palpitations Confirmed Active Diagnosis Diagnosis Type Effective Dates Health Status Clinical Serv ice Informant COVID-19 Discharge 03/25/22 Non-Specified Diagnosis Social History Social History Type Response Smoking Status Never smoker; Tobacco user i n household: No entered on: 10/22/16 Sex Patient Care team information Care Team PersonnelName: Sameer Prater MD Position: [facility] Primary Care Physician Member Role: PCP Address: Address: [address] [place] [address] Adult & Pediatric Medicine [place], [place] [address] Care Team Related PersonsName: EDDIE BARRAZA Address: home [address] [place] [address] Name: SOCORRO MARVIN Address: home [address] [place] [address] Name: JONG RAVI Address: home [address] [place] [address] Name: KALA TATUM Address: home [address] [place] [address] Name: KALA TATUM Address: home [address] [place] [id number]
--- NOTE | 2022-06-08 09:09 | ED_ITS ---
HPI - General Adult General Chief complaint: General Medical Stated complaint: pain in left jaw, ear ache Time Seen by Provider: 06/08/22 09:07 Source: patient Mode of arrival: ambulatory Limitations: no limitations History of Present Illness HPI narrative: Patient is a 32 year old assigned female at with a history of migraines presenting to the emergency department today with left sided jaw pain. Patient states that she has noticed her left jaw intermittently locking and being painful at times. Patient denies any dizziness, lightheadedness, abdominal pain, nausea, vomiting, fever, chills, blurry vision, double vision, loss of vision, chest pain, difficulty breathing, shortness of breath, back pain, night sweats, pain with urination, increased urinary frequency, increased urinary urgency, blood in her urine or stool, syncope or a near syncopal episode, recent trauma or falls, bowel incontinence, bladder incontinence, bowel retention, bladder retention, or any other complaints at this time. Onset (ago): week(s) Location: face Severity: mild Severity scale (1-10): 3 Pain Consistency: intermittent Relieving factors: none Exacerbating factors: none Associated symptoms: denies other symptoms Treatments prior to arrival: none Related Data Previous Rx's Medication Instructions Recorded azithromycin 250 mg tablet See Rx Instructions PO .COMPLEX #6 03/01/22 tabs benzonatate 100 mg capsule 100 mg PO TID PRN cough #15 caps 03/01/22 prednisone 20 mg tablet 40 mg PO DAILY 5 days #10 tabs 03/01/22 naproxen 500 mg tablet 500 mg PO BID 7 days #14 tabs 06/08/22 Allergies Allergy/AdvReac Type Severity Reaction Status Date / Time No Known Allergies Allergy Mild NONE Verified 06/08/22 08:12 Review of Systems Constitutional: Constitutional: Reports no additional constitutional complaints, Denies chills, Denies fever(s) and Denies night sweats Eyes: Eyes: Reports no additional eye complaints, Denies blurry vision, Denies change in vision, Denies diplopia, Denies eye discharge, Denies loss of vision and Denies eye pain ENT: Denies dizziness Comments: left sided intermittent jaw pain and jaw locking Cardiovascular: Cardiovascular: Reports no additional cardiovascular complaints, Denies chest pain, Denies lightheadedness, Denies Loss of Consciousness and Denies dyspnea Respiratory: Respiratory: Reports no additional respiratory complaints and Denies dyspnea Gastrointestinal: Gastrointestinal: Reports no additional gastrointestinal complaints, Denies abdominal pain, Denies melena, Denies hematochezia, Denies change in bowel habits and Denies change in stool character Genitourinary: Genitourinary: Denies hematuria, Denies urinary frequency, Denies dysuria, Denies urinary incontinence, Denies urinary hesitancy and Denies urinary urgency Musculoskeletal: Musculoskeletal: Reports no additional musculoskeletal complaints, Denies numbness and Denies tingling Neurologic: Denies dizziness, Denies loss of vision, Denies numbness and D enies tingling Psychiatric: Psychiatric: Reports no additional psychiatric complaints Endocrine: Endocrine: Reports no additional endocrine complaints Hematologic/Lymphatic: Hematologic/Lymphatic: Reports no additional hematologic/lymphatic complaints Allergic/Immunologic: Allergic/Immunologic: Reports no additional allergic/immunologic complaints PMFSH Past Medical History Attestation statement: The following information was validated with the patient. Source: old records reviewed and nursing notes reviewed Medical History Asthma Endometriosis Migraines Social History Social History Advance Directives: No Advance Directives Information Provided: No Physical Exam ED Vital Signs: Vital Signs - 24 hr 06/08/22 08:14 Temperature 97 F Pulse Rate 79 Respiratory Rate 18 Blood Pressure 139/67 Pulse Oximetry 97 Oxygen Delivery Method Room Air BMI result Body Mass Index 46.7 Const General: cooperative, no acute distress, alert and awake Nutritional Appearance: well nourished Orientation/consciousness: patient oriented x3 Limitations: no limitations [facility] Head: Yes normal to inspection and Yes atraumatic Ears: hearing grossly normal bilaterally and external ears normal General nose exam: Normal external nose present, no nasal discharge noted and no epistaxis Face and sinus: Yes normal facial exam, No abrasion and No laceration Mouth: Normal oral and palatal mucosa present, no drooling, no muffled voice and abnormal TMJ (clicking felt on left side, consistent with TMJ dysfunction) Eyes General: appearance normal, both eyes and all related structures Periorbital: periorbital findings normal Eyelids: Yes eyelids normal Conjunctivae: conjunctivae normal Pupils: Equal, round and reactive pupils present EOM: EOMs intact bilaterally Neck Neck: Yes normal visual inspection, Yes full ROM and Yes no lymphadenopathy Chest Chest palpation & inspection: normal inspection of the chest Resp Effort & Inspection: normal respiratory effort and able to speak in complete sentences Auscultation: clear to auscultation bilaterally Cardio Rate: regular rate Rhythm: regular rhythm GI Inspection: Yes normal to inspection Palpation (GI): Soft to palpation, not firm, nontender and no guarding Neuro General: patient oriented x3 and moves all extremities Cranial nerves: Yes Equal, round and reactive pupils present Cognition (Neuro): normal cognition Motor exam (neuro): 5/5 motor strength present throughout Sensory Exam: Normal double simultaneous stimulation for sensation Coordination: [id number] test normal Extrem General: Yes normal to inspection, Yes full ROM and Yes capillary refill normal Psych Appearance: grossly normal Mental Status: mental status grossly normal Affect: normal affect Attitude: cooperative Thought process: Normal thought process present Thought content: Normal thought content present Insight: Good insight present (Psych) Medical Decision Making Medical Decision Making MDM Narrative: Patient is a 32 year old assigned female at with a history of migraines presenting to the emergency department today with intermittent left sided jaw pain and jaw clicking. Patient's physical exam showed left sided jaw clicking, consistent with TMJ dysfunction. I explained my physical exam findings to the patient. I answered all questions asked by the patient. I stressed the importance of the patient taking [his/her/their] medication as prescribed. I stressed the importance of the patient following up with her primary care provider and a dentist. I stressed the importance of the patient returning to the emergency department immediately if her symptoms were to worsen or if she were to develop any dizziness, shortness of breath, difficulty breathing, chest pain, blurry vision, loss of vision, nausea, vomiting, abdominal pain, fever, chills, back pain, or any other complaints. Patient verbalized agreement and understanding with this treatment plan and discharge. Differential Diagnosis Differential Diagnoses: The differential diagnosis associated with the presentation includes TMJ pain, TMJ dysfunction Discharge Plan Discharge Clinical Impression: TMJ dysfunction Patient Disposition: Home, Self-Care Instructions: Arthroscopic TMJ (DC) Additional Instructions: Follow up with your primary care provider and a dentist. Return to the emergency department immediately if your symptoms worsen or if you develop any dizziness, shortness of breath, difficulty breathing, chest pain, blurry vision, loss of vision, nausea, vomiting, abdominal pain, fever, chills, back pain, or any other complaints. Call or visit any of the clinics below to establish with a dentist: [facility] [address] [place] [address] [facility] [address] [facility], [address] [address] [place] [address] [facility] 1 [facility] [address] [place] [address] [facility] [address] [place] [address] [place] [address] [place] [address] Prescriptions: New naproxen 500 mg tablet 500 mg PO BID 7 Days Qty: 14 0RF No Action azithromycin 250 mg tablet See Rx Instructions .ROUTE .COMPLEX Qty: 6 0RF Rx Instructions: For 250 mg dose pack: take 500 mg today (day 1), then 250 mg for 4 days (days 2-5) benzonatate 100 mg capsule 100 mg PO TID PRN (Reason: cough) Qty: 15 0RF prednisone 20 mg tablet 40 mg PO DAILY 5 Days Qty: 10 0RF Referrals: Sameer Prater MD [Primary Care Provider] - Stand Alone Forms: Work/School Release Interventions: ED Discharge Assessment Last Done: 06/08/22 09:18 Discharge Date/Time: 06/08/22 09:19 Print Language: Kinyarwanda
== END 2022-06-08 09:19 | disposition home or self-care (01) ==
PROVIDERS: Emergency Provider Student in an Organized Health Care Education/Training Program; PCP Internal Medicine
DX: M26.603 Bilateral temporomandibular joint disorder, unspecified (principal); Z79.899 Other long term (current) drug therapy
CPT/HCPCS: 99282; 99283

== ENCOUNTER 2025-02-15 09:56 | Emergency (ER) | payer OTHER, SELFPAY ==
[2025-02-15 10:00] VITALS: BP 132/66; PULSE 72; RESP 20; TEMP 36.1; O2SAT 100; BMI 41.1
--- NOTE | 2025-02-15 10:38 | ED.FEMALEGU ---
HPI - Female Genitourinary General Chief complaint: Urogenital-Female Stated complaint: Urinary Symptoms Time Seen by Provider: 02/15/25 10:37 History of Present Illness ED Provider: Lonny DILL Narrative: The patient is a 34-year-old female who says that she has a an IUD in place that has been in place for several years. She says that during the last 4 or 5 days she feels that a greater length of the IUD strings has been protruding from her vagina. She has also had urinary discomfort a generalized pelvic discomfort. No vaginal discharge. She has had no fever, sweats, chills. No nausea or vomiting. She has not been sexually active in years. She says that she had the IUD placed here at [facility] several years ago at the Gynecology office. She tried to reach the Gynecology office recently but because she has not been seen there she is considered a new patient and therefore could not be seen on a prompt basis. The patient also has a sense of dysuria and urinary urgency and frequency. Related Data Previous Rx's ?Medication ?Instructions ?Recorded azithromycin 250 mg tablet See Rx Instructions PO .COMPLEX #6 03/01/22 tabs benzonatate 100 mg capsule 100 mg PO TID PRN cough #15 caps 03/01/22 prednisone 20 mg tablet 40 mg (2 x 20 mg) PO DAILY 5 days 03/01/22 #10 tabs naproxen 500 mg tablet 500 mg PO BID 7 days #14 tabs 06/08/22 cefuroxime axetil 250 mg tablet 250 mg PO BID #10 tabs 02/15/25 Allergies Allergy/AdvReac Type Severity Reaction Status Date / Time No Known Allergies Allergy Mild NONE Verified 02/15/25 10:03 Review of Systems Review of Systems: Yes all other systems are reviewed and are negative [facility] Past Medical History Medical History Asthma Endometriosis Migraines Social History Social History Smoked in Last 30 Days: No Use of substances other than those prescribed or required for medical reasons: No Advance Directives: No Advance Directives Information Provided: Yes Do you have a plan to hurt others: No Plan Patient : No Physical Exam Vital Signs: Vital Signs: Last Vital Signs Temp 97.0 F 11/20/25 13:29 Pulse 72 02/15/25 13:29 Resp 20 02/15/25 13:29 BP 132/66 02/15/25 13:29 Pulse Ox 100 02/15/25 13:29 O2 Del Method Room Air 02/15/25 13:29 BMI result Body Mass Index 41.1 Const: Other: The patient is a 34-year-old woman who was awake and alert, pleasant and cooperative. She does not appear acutely ill. Orientation/consciousness: patient oriented x3 HEENT: Other: The face is symmetrical. ?Mucous membranes moist. Eyes: Other: Pupils are round equal, conjunctivae are clear, extraocular movements intact Neck: Neck: Yes normal visual inspection and Yes full ROM Resp: Effort & Inspection: normal respiratory effort Auscultation: clear to auscultation bilaterally Cardio: Rate: regular rate Rhythm: regular rhythm Heart sounds: S1 normal heart sound present and S2 normal heart sound present GI: Other: The abdomen is soft and does not seem tender. : Other: Unremarkable external genitalia. Speculum exam revealed IUD strings protruding from the cervical os. No bleeding. No discharge. No significant cervical motion tenderness or adnexal tenderness. Skin: Other: The skin is dry and unremarkable Neuro: General: patient oriented x3, tone normal, moves all extremities, no focal motor deficits and CN's II-XI intact bilaterally Extrem: Other: There is no calf swelling or tenderness. No asymmetry. No peripheral edema. Medications Administered Discontinued Medications Generic Name Dose Route Start Last Admin Trade Name Freq PRN Reason Stop Dose Admin Cefuroxime Axetil 500 mg 02/15/25 13:05 02/15/25 13:18 Cefuroxime Axetil 500 Mg Tablet PO 02/15/25 13:06 500 mg ONCE ONE Administration Medical Decision Making Medical Decision Making MDM Narrative: The patient presented to the emergency department complaining of what seems to be pelvic discomfort that she thinks is likely related to her IUD. She feels that the IUD string is hanging out further than usual. She would like her IUD removed. She tried to get an outpatient appointment with gynecology but could not get an appointment till next week and she did not feel she could wait that long. She also has some urinary symptoms. The IUD was removed using forceps and gentle pressure. The IUD was removed without incident and it came out intact. The patient seems otherwise nontoxic. There was no significant cervical motion tenderness on bimanual exam after extraction of the IUD. I do not appreciate any significant discharge or other signs of vaginal infection. The patient had some urinary symptoms. A urinalysis is potentially consistent with a urinary tract infection. The patient will be placed on 5 days of cefuroxime 250 mg b.i.d.. The patient has an appointment with [facility] next week for follow up. Lab Data Labs: Lab Results 02/15/25 Range/Units 12:51 Urine Color Yellow Urine Appearance Clear Urine pH 8.0 (5.0-9.0) Ur Specific [place] 1.010 (1.005-1.025) Urine Protein Negative (Neg-Trace) mg/dL Urine Glucose (UA) Negative (Negative) mg/dL Urine Ketones Negative (Negative) mg/dL Urine Blood Large (3+) H (Negative) Urine Nitrite Negative (Negative) Ur Leukocyte Esterase Trace H (Negative) Urine RBC 6-10 H (0-2) /HPF Urine WBC 11-20 H (0-5) /HPF Ur Squamous Epith Cells 6-10 (0-2) /HPF Urine Bacteria 2+ (None Seen) Hyaline Casts 0-2 (0-2) /LPF Procedures Foreign Body Removal Time Out Performed: yes Site: vagina Description of foreign body: other (IUD) Sedation/Analgesia: none Technique: removal with forceps Complications: none (IUD removed intact and entire) Discharge Plan Discharge Clinical Impression: Pelvic and perineal pain, Encounter for IUD removal, Dysuria Patient Disposition: Home, Self-Care Additional Instructions: Your IUD was removed without any difficulty. It came out in its entirety. Your urine test suggest that you might have a urinary tract infection. You have therefore been started on antibiotics. Please take the antibiotic cefuroxime 2 times a day until the prescription is done (5 days and total). Next dose this evening. You may use ibuprofen and acetaminophen as needed for discomfort. Please keep your appointment with the Gynecology office next week. Return to the emergency room at any time if you feel significantly worse before then. Prescriptions: New cefuroxime axetil 250 mg tablet 250 mg PO BID Qty: 10 0RF No Action azithromycin 250 mg tablet See Rx Instructions .ROUTE .COMPLEX Qty: 6 0RF Rx Instructions: For 250 mg dose pack: take 500 mg today (day 1), then 250 mg for 4 days (days 2-5) benzonatate 100 mg capsule 100 mg PO TID PRN (Reason: cough) Qty: 15 0RF prednisone 20 mg tablet 40 mg PO DAILY 5 Days Qty: 10 0RF naproxen 500 mg tablet 500 mg PO BID 7 Days Qty: 14 0RF Referrals: [facility] [Provider Group] [facility] [Provider Group] Interventions: ED Discharge Assessment Last Done: 02/15/25 13:29 Discharge Date/Time: 02/15/25 13:30 Print Language: Lebanese
[2025-02-15 12:59] LABS: Appearance Urine Clear; Glucose Urine UA Negative (Negative); PH 8.0 (5.0-9.0); Specific Gravity - Urine 1.010 (1.005-1.025); UMIC TRIGGER UACC YES
[2025-02-15 13:01] LABS: UACC Culture Trigger YES
[2025-02-15 13:29] VITALS: BP 132/66; PULSE 72; RESP 20; TEMP 36.1; O2SAT 100
--- OUTSIDE RECORDS SUMMARY | 2025-02-15 16:23 | XMS_ITS | Encounter Summary ---
Author Organization [facility] Address [address] [place] [address] Phone Care Team Providers Care Rehab Aid Name Role Phone Cheryle Stroud LOSS PREVENTION AUDITOR Primary Care Provider Unavail able Encounter Details Date Type Department Care Team (Late st Contact Info) Description 11/12/2016 Conversion Encounter [facility] - [address] [id number] Social History Tobacco Use Types Packs/Day Years Used Date Smoking Tobacco: Never Assessed Comments Unknown Sex and Gender Information Value Date Recorded Sex Assigned at Not on file Legal Sex Female 4:42 PM EDT Gender Identity Not on file Sexual Orientation Not on file documented as of this encounter Plan of Treatment Not on file documented as of this encounter Visit Diagnoses Not on filedocumented in this encounter Care Teams Rehab Aid Relationship Specialty Start Date End Date Cheryle Stroud NP PCP - General 11/06/16 documented as of this encounter
--- OUTSIDE RECORDS SUMMARY | 2025-02-15 16:23 | XMS_ITS | Encounter Summary ---
Author Organization [facility] Address [address] [place] [phone] Phone Care Team Providers Care Timber Sizer Operator Name Role Phone Cheryle Stroud NP Primary Care Provider Unavail able Encounter Details Date Type Department Care Team (Late st Contact Info) Description 09/26/2009 Documentation EM Family Medicine [address] [place], [place] [phone] Family Medicine, Physician [address] [place] [address] Social History Tobacco Use Types Packs/Day Years [...] on filedocumented in this encounter Care Teams Timber Sizer Operator Relationship Specialty Start Date End Date Cheryle Stroud NP PCP - General 11/06/16 documented as of this encounter
--- OUTSIDE RECORDS SUMMARY | 2025-02-15 16:23 | XMS_ITS | Encounter Summary ---
Author Organization [facility] Address [address] [place] [phone] Phone Care Team Providers Care Lighting Specialist Name Role Phone Cheryle Stroud NP Primary Care Provider Unavail able Encounter Details Date Type Department Care Team (Late st Contact Info) Description 12/13/2009 Documentation EM Family Medicine [address] [place], [place] [phone] Family Medicine, Physician [address] [place] [address] Social History Tobacco Use Types Packs/Day Years [...] on filedocumented in this encounter Care Teams Lighting Specialist Relationship Specialty Start Date End Date Cheryle Stroud NP PCP - General 11/06/16 documented as of this encounter
--- OUTSIDE RECORDS SUMMARY | 2025-02-15 16:23 | XMS_ITS | Clinical Summary ---
Author Organization [facility] Address [address] [place] [phone] Phone Care Team Providers Care Automatic Screwmaker Name Role Phone Cheryle Stroud BREED TO WEAN PRODUCTION TECHNICIAN Primary Care Provider Unavail able Immunizations Immunization Administration Dates Next Due DTP 04/29/1994, 1,1989,1989,1989 H1N1 01/25/2009 HPV, Quadrivalent 01/25/2009,03/06/2008,01/04/20 08 Hep B, ped/adol 08/24/2001,04/11/2001,03/09/2001 Hib (PRP-T) 04/29/1994, 1,05/11/1990,1989 Influenza Split 02/05/2010 Influenza, injectable, trivalent 009,01/04/2008,12/23/2006,2003 MMR 07/21/2001,08/09/1990 OPV 04/29/1994, 1,1989,1989 Td (adult) (MBL), 2 Lf tetan us toxoid, PF, adsorbed 07/21/2001 Tdap 01/04/2008 Family History Relation Name Status Comments Brother Alive Brother: Asthma Father Alive Father: Heart S urgery, Coronary artery disease Mother Alive Mother: Diabete s mellitus, Asthma Social History Tobacco Use Types Packs/Day Years Used Date Smoking Tobacco: Never Assessed Comments Unknown Sex and Gender Information Value Date Recorded Sex Assigned at Not on file Legal Sex Female 4:42 PM EDT Gender Identity Not on file Sexual Orientation Not on file Last Filed Vital Signs Vital Sign Reading Time Taken Comments Blood Pressure 122/76 02/05/2010 12:00 AM EST Pulse - - Temperature 36.2 C (97.1 F) 09/11/2009 12:00 AM EDT Respiratory Rate - - Oxygen Saturation - - Inhaled Oxygen Concentration - - Weight 102 kg (225 lb) 02/05/2010 12:00 AM EST Height 165.1 cm (5' 5 ) 02/05/2010 12:00 AM EST Body Mass Index 37.44 02/05/2010 12:00 AM EST Plan of Treatment Health Maintenance Due Date Last Done Comments Varicella Vaccines (1 of 2 - 13+ 2-dose series) 2002 DTaP,Tdap,and Td Vaccines (7 - Td or Tdap) 01/03/2018 01/04/2008, 07/21/2001, 04/29/1994, Additional history exists Influenza Vaccines (#1) 2024 02/06/20, 03/15/2009, 01/04/2008, Additional history exists COVID-19 Vaccine (2024- season) 2024 HIB Vaccines Completed 04/29/1994, 07/27, 05/11/1990, Additional history exists IPV Vaccines Completed 04/29/1994, 10/27, 1989, Additional history exists MMR Vaccines Completed 07/21/2001, 08/09/1990 Hepatitis B Vaccines Completed 08/24/2001, 04/11/2001, 03/09/2001 HPV Vaccines Completed 01/25/2009, 11/2007, 01/04/2008 Hepatitis A Vaccines Aged Out No long er eligible based on patient's age to complete this topic Men B Vaccine Aged Out No longer elig ible based on patient's age to complete this topic Meningococcal Vaccine Aged Out No jenna cory eligible based on patient's age to complete this topic Pneumococcal Vaccine Aged Out No long er eligible based on patient's age to complete this topic Procedures * Due to [place] TIDAL PETRO[place] law, this organization might not be sharing sensitive test results. Procedure Name Priority Date/Time Associated Diagnosis Comments CHLAMYDIA AND GONORRHEA, AMPLIFIED Routine 02/06/2010 1:43 PM EST from Last 3 Months or Most Recently Relevant to Health Maintenance Results * Due to [place] T[place]AL [employer] law, this organization might not be sharing sensitive test results. * Chlamydia and Gonorrhoea, Amplified (02/06/2010 1:43 PM EST) URINE CHLAMYDIA AMP PROBE NEGATIVE [facility] Comment: NO CHLAMYDIA TRACHOMATIS RNA DETECTED IN THIS PATIENT'S SAMPLE. (REFERENCE RANGE/NORMAL VALUE: NOT DETECTED) URINE GC AMP PROBE NEGATIVE [facility] Comment: NO NEISSERIA GONORRHOEAE RNA DETECTED IN THIS PATIENT'S SAMPLE. (REFERENCE RANGE/NORMAL VALUE: NOT DETECTED) NOTE: THIS TEST USES ELECTRICIAN MANAGER MEDIATED AMPLIFICATION METHOD TO DETECT rRNA FROM C.TRACHOMATIS AND N.GONORRHOEAE. A NEGATIVE RESULT DOES NOT PRECLUDE INFECTION WITH C.TRACHOMATIS OR N.GONORRHOEAE BECAUSE RESULTS ARE DEPENDENT ON ADEQUATE SPECIMEN COLLECTION, ABSENCE OF INHIBITORS, AND SUFFICIENT rRNA TO BE DETECTED. THE APTIMA COMBO2 ASSAY IS NOT INTENDED FOR THE EVALUATION OF SUSPECTED SEXUAL ABUSE OR FOR OTHER MEDICO LEGAL INDICATIONS. IS TRUE FOR ALL NON CULTURE METHODS, A POSITIVE SPECIMEN OBTAINED FROM A PATIENT AFTER THERAPEUTIC TREATMENT CANNOT BE INTERPRETED INDICATING THE PRESENCE OF VIABLE C.TRACHOMATIS OR N.GONORRHOEAE. THERAPEUTIC FAILURE OR SUCCESS CANNOT BE DETERMINED WITH THE APTIMA COMBO2 ASSAY SINCE NUCLEIC ACID MAY PERSIST FOLLOWING APPROPRIATE ANTIMICROBIAL THERAPY. A NEGATIVE URINE RESULT FOR A PATIENT WHO IS CLINICALLY SUSPECTED OF HAVING A CHLAMYDIAL OR GONOCOCCAL INFECTION DOES NOT RULE OUT THE PRESENCE OF C.TRACHOMATIS OR N.GONORRHOEAE IN THE UROGENITAL TRACT. TESTING OF AN ENDOCERVICAL(FEMALE) OR URETHRAL(MALE) SPECIMEN IS RECOMMENDED IF THERE IS HIGH CLINICAL SUSPICION OF INFECTION. PRESERVCYT LIQUID PAP AND URINE SAMPLING ARE NOT DESIGNED TO REPLACE CERVICAL EXAMS AND ENDOCERVICAL SAMPLES FOR DIAGNOSIS OF FEMALE UROGENITAL INFECTIONS. PATIENTS MAY HAVE CERVICITIS, URETHRITIS, URINARY TRACT INFECTIONS, OR VAGINAL INFECTIONS DUE TO OTHER CAUSES OR CONCURRENT INFECTIONS WITH OTHER AGENTS. 02/06/2010 1:43 PM EST Narrative [facility] - 02/06/2010 1:43 PM EST URINE CHLAMYDIA GC AMP PROBE us Cheryle Stroud NP LAB MICROBIOLOGY - GENERAL ORD ERABLES Final Result [facility] [address] [place] [address], from Last 3 Months or Most Recently Relevant to Health Maintenance Care Teams Automatic Screwmaker Relationship Specialty Start Date End Date Cheryle Stroud NP PCP - General 11/06/16
--- OUTSIDE RECORDS SUMMARY | 2025-02-15 16:23 | XMS_ITS | Encounter Summary ---
Author Organization [facility] Address [address] [place] [phone] Phone Care Team Providers Care Logging Operations Inspector Name Role Phone Cheryle Stroud NP Primary Care Provider Unavail able Encounter Details Date Type Department Care Team (Late st Contact Info) Description 12/24/2014 Documentation EM Family Medicine [address] [place], [place] [phone] Family Medicine, Physician [address] [place] [address] Social History Tobacco Use Types Packs/Day Years [...] on filedocumented in this encounter Care Teams Logging Operations Inspector Relationship Specialty Start Date End Date Cheryle Stroud NP PCP - General 11/06/16 documented as of this encounter
--- OUTSIDE RECORDS SUMMARY | 2025-02-15 16:23 | XMS_ITS | Clinical Summary ---
Author Organization [facility] Address [address] [place] [address] Care Team Providers Care Operational Risk Consultant Name Role Phone Unavailable Primary Care Provider Unavailabl e Social History Tobacco Use Types Packs/Day Years Used Date Smoking Tobacco: Never Assessed Comments Unknown Sex and Gender Information Value Date Recorded Sex Assigned at Not on file Legal Sex Female 2:03 AM EST Gender Identity Not on file Sexual Orientation Not on file Plan of Treatment Health Maintenance Due Date Last Done Comments DTaP,Tdap,and Td Vaccines (1 - Tdap) 2008 Hepatitis B Vaccines (1 of 3 - 19+ 3-dose series) 2008 Cervical Cancer Screening: P ap Smear 2010 HPV Vaccines (1 - 3-dose SCD M series) 2016 Depression Screening 03/29/2024 COVID-19 Vaccine ( - 2024-2 6 season) 2024 Influenza Vaccine (#1) 2024 RSV Immunization Adult Patie nts (1 - 1-dose 75+ series) 2064 HIB Vaccines Aged Out No longer eligi ble based on patient's age to complete this topic Hepatitis A Vaccines Aged Out No long er eligible based on patient's age to complete this topic IPV Vaccines Aged Out No longer eligi ble based on patient's age to complete this topic MMR Vaccines Aged Out No longer eligi ble based on patient's age to complete this topic Meningococcal ACWY Vaccine Aged Out N o longer eligible based on patient's age to complete this topic Meningococcal B Vaccine Aged Out No l onger eligible based on patient's age to complete this topic Pneumococcal Vaccine: Pediat rics (0 to 5 Years) and At-Risk Patients (6 to 49 Years) Aged Out No longer eligible b ased on patient's age to complete this topic RSV Immunization Patients Un diane 20 months Aged Out No longer eligible b ased on patient's age to complete this topic Varicella Vaccines Aged Out No longer eligible based on patient's age to complete this topic
--- OUTSIDE RECORDS SUMMARY | 2025-02-15 16:23 | XMS_ITS | Encounter Summary ---
Author Organization [facility] Address [address] [place] [phone] Phone Care Team Providers Care Health And Safety Trainer Name Role Phone Cheryle Stroud NP Primary Care Provider Unavail able Encounter Details Date Type Department Care Team (Late st Contact Info) Description 01/05/2014 Documentation EM Family Medicine [address] [place], [place] [phone] Family Medicine, Physician [address] [place] [address] Social History Tobacco Use Types Packs/Day Years [...] on filedocumented in this encounter Care Teams Health And Safety Trainer Relationship Specialty Start Date End Date Cheryle Stroud NP PCP - General 11/06/16 documented as of this encounter
== END 2025-02-15 13:30 | disposition home or self-care (01) ==
PROVIDERS: Emergency Provider Emergency Medicine; PCP Internal Medicine
DX: R10.20 Pelvic and perineal pain unspecified side (principal); R30.0 Dysuria; Z30.432 Encounter for removal of intrauterine contraceptive device
CPT/HCPCS: 81001; 87086; 99283; 99284

== ENCOUNTER 2025-02-17 22:24 | Emergency (ER) | payer OTHER, SELFPAY ==
[2025-02-17 22:27] VITALS: BP 135/77; PULSE 76; RESP 18; TEMP 36.3; O2SAT 100; BMI 40.3
[2025-02-17 22:54] VITALS: BP 128/71; PULSE 77; RESP 16; TEMP 37.1; O2SAT 99
--- OUTSIDE RECORDS SUMMARY | 2025-02-17 23:06 | XMS_ITS | Clinical Summary ---
Author Organization [facility] Address [address] [place] [phone] Phone Care Team Providers Care Inspecting Machine Adjuster Name Role Phone Cheryle Stroud SHEEP SHEARER Primary Care Provider Unavail able Immunizations Immunization [...] complete this topic Procedures * Due to [place] law, this organization might not be sharing sensitive test results. Procedure Name Priority Date/Time Associated Diagnosis Comments CHLAMYDIA AND GONORRHEA, AMPLIFIED Routine 02/06/2010 1:43 PM EST from Last 3 Months or Most Recently Relevant to Health Maintenance Results * Due to [place] law, this organization might not be sharing sensitive test results. * Chlamydia and Gonorrhoea, Amplified (02/06/2010 1:43 PM EST) URINE CHLAMYDIA AMP PROBE NEGATIVE [facility] Comment: NO CHLAMYDIA TRACHOMATIS RNA DETECTED IN THIS PATIENT'S SAMPLE. (REFERENCE RANGE/NORMAL VALUE: NOT DETECTED) URINE GC AMP PROBE NEGATIVE [facility] Comment: NO NEISSERIA GONORRHOEAE RNA DETECTED IN THIS PATIENT'S SAMPLE. (REFERENCE RANGE/NORMAL VALUE: NOT DETECTED) NOTE: THIS TEST USES SQUARING MACHINE OPERATOR MEDIATED AMPLIFICATION METHOD TO DETECT rRNA FROM [...] OTHER AGENTS. 02/06/2010 1:43 PM EST Narrative [facility] - 02/06/2010 1:43 PM EST URINE CHLAMYDIA GC AMP PROBE us Cheryle Stroud NP LAB MICROBIOLOGY - GENERAL ORD ERABLES Final Result [facility] [address] [place] [address], from Last 3 Months or Most Recently Relevant to Health Maintenance Care Teams Inspecting Machine Adjuster Relationship Specialty Start Date End Date Cheryle Stroud NP PCP - General 11/06/16
--- OUTSIDE RECORDS SUMMARY | 2025-02-17 23:06 | XMS_ITS | Encounter Summary ---
Author Organization [facility] Address [address] [place] [address] Phone Care Team Providers Care Entry Level Chemist Name Role Phone Cheryle Stroud NP Primary Care Provider Unavail able Encounter Details Date Type Department Care Team (Late st Contact Info) Description 01/05/2014 Documentation EM Family Medicine [address] [place], [place] [phone] Family Medicine, Physician [address] [place] [address] Social History Tobacco Use Types Packs/Day Years [...] on filedocumented in this encounter Care Teams Entry Level Chemist Relationship Specialty Start Date End Date Cheryle Stroud NP PCP - General 11/06/16 documented as of this encounter
--- OUTSIDE RECORDS SUMMARY | 2025-02-17 23:06 | XMS_ITS | Encounter Summary ---
Author Organization [facility] Address [address] [place] [address] Phone Care Team Providers Care Sanitor Name Role Phone Cheryle Stroud NP Primary Care Provider Unavail able Encounter Details Date Type Department Care Team (Late st Contact Info) Description 12/24/2014 Documentation EM Family Medicine [address] [place], [place] [phone] Family Medicine, Physician [address] [place] [address] Social History Tobacco Use Types Packs/Day Years [...] on filedocumented in this encounter Care Teams Sanitor Relationship Specialty Start Date End Date Cheryle Stroud NP PCP - General 11/06/16 documented as of this encounter
--- OUTSIDE RECORDS SUMMARY | 2025-02-17 23:06 | XMS_ITS | Encounter Summary ---
Author Organization [facility] Address [address] [place] [phone] Phone Care Team Providers Care Aluminum Welder Name Role Phone Cheryle Stroud NP Primary Care Provider Unavail able Encounter Details Date Type Department Care Team (Late st Contact Info) Description 09/26/2009 Documentation EM Family Medicine [address] [place], [place] [phone] Family Medicine, Physician [address] [place] [address] Social History Tobacco Use Types Packs/Day Years [...] on filedocumented in this encounter Care Teams Aluminum Welder Relationship Specialty Start Date End Date Cheryle Stroud NP PCP - General 11/06/16 documented as of this encounter
--- OUTSIDE RECORDS SUMMARY | 2025-02-17 23:06 | XMS_ITS | Clinical Summary ---
Author Organization [facility] Address [address] [place] [address] Care Team Providers Care Sales Performance Manager Name Role Phone Unavailable Primary Care Provider [...]
--- OUTSIDE RECORDS SUMMARY | 2025-02-17 23:06 | XMS_ITS | Encounter Summary ---
Author Organization [facility] Address [address] [place] [phone] Phone Care Team Providers Care Bandage Wrapping Machine Operator Name Role Phone Cheryle Stroud NP Primary Care Provider Unavail able Encounter Details Date Type Department Care Team (Late st Contact Info) Description 12/13/2009 Documentation EM Family Medicine [address] [place], [place] [phone] Family Medicine, Physician [address] [place] [address] Social History Tobacco Use Types Packs/Day Years [...] on filedocumented in this encounter Care Teams Bandage Wrapping Machine Operator Relationship Specialty Start Date End Date Cheryle Stroud NP PCP - General 11/06/16 documented as of this encounter
--- OUTSIDE RECORDS SUMMARY | 2025-02-17 23:06 | XMS_ITS | Encounter Summary ---
Author Organization [facility] Address [address] [place] [address] Phone Care Team Providers Care Sports Book Board Attendant Name Role Phone Cheryle Stroud LEAD DENTAL ASSISTANT Primary Care Provider Unavail able Encounter Details Date Type Department Care Team (Late st Contact Info) Description 11/12/2016 Conversion Encounter [facility] - [address] [phone] Social History Tobacco Use Types Packs/Day Years [...] on filedocumented in this encounter Care Teams Sports Book Board Attendant Relationship Specialty Start Date End Date Cheryle Stroud NP PCP - General 11/06/16 documented as of this encounter
[2025-02-17 23:31] LABS: MANUAL DIFF FLAG NO
[2025-02-17 23:36] LABS: Hematocrit 41.1 % (37.0-47.0); Hemoglobin 14.1 g/dl (12.0-16.0); Imm Gran Abs Auto 0.01 X10*3/uL (0.00-0.03); Imm Gran Pct Auto 0.1 % (0.0-0.4); Lymphocytes Absolute Auto 3.7 X10*3/uL (1.2-4.9); Mean Corpuscular HGB Conc 34.3 g/dl (31.0-35.0); Mean Corpuscular Hemoglobin 28.3 pg (27.0-33.0); Mean Corpuscular Volume 82.4 fL (80.0-98.0); NRBC Abs Auto 0.000 X10*3/uL (0.0-0.012); NRBC Pct Auto 0.0 /100WBC (0.0-0.2); Platelet Count 273 X10*3/uL (160-400); Red Blood Count 4.99 X10*6/uL (4.20-5.50); White Blood Count 7.4 X10*3/uL (4.8-10.8)
--- NOTE | 2025-02-17 23:45 | PC.NURSE ---
took over care at 23:00, medicated per may.
[2025-02-17 23:55] LABS: Alanine Aminotransferase 24 U/L (0-31); Albumin Level 4.5 g/dL (3.5-5.0); Alkaline Phosphatase 73 U/L (39-117); Anion Gap 14 (12-20); Aspartate Amino Transferase 17 U/L (5-31); Blood Urea Nitrogen 12 mg/dL (9-16); Calcium 9.9 mg/dL (8.4-10.2); Carbon Dioxide 27 mmol/L (22-29); Chloride 104 mmol/L (96-108); Creatinine Clr Calc Pharmacy 122.3; Estimated Glomerular Filt Rate > 60; Potassium 3.9 mmol/L (3.3-5.1); Sodium 141 mmol/L (135-145); Total Protein 7.1 g/dL (6.5-8.0)
[2025-02-18 00:14] LABS: Appearance Urine Clear; Glucose Urine UA Negative (Negative); PH 7.5 (5.0-9.0); Specific Gravity - Urine 1.010 (1.005-1.025); UMIC TRIGGER UACC YES
[2025-02-18 00:28] LABS: UACC Culture Trigger YES
--- NOTE | 2025-02-18 00:36 | ED_ITS ---
HPI - Female Genitourinary General Chief complaint: Urogenital-Female Stated complaint: Vaginal Issues Time Seen by Provider: 02/17/25 23:28 Source: patient Limitations: no limitations History of Present Illness ED Provider: Nevin Caldera PA-C HPI Narrative: 34-year-old female presents with pelvic cramping x2 days. Patient had an IUD removed here in the emergency room 2 days ago, she was prescribed antibiotics for suspect urinary tract infection. Patient states the cramping has increased in severity, she has been using [id number] ibuprofen without relief of symptoms. Denies fever or new vaginal discharge. Related Data Previous Rx's ?Medication ?Instructions ?Recorded azithromycin 250 mg tablet See Rx Instructions PO .COM PLEX #6 03/01/22 tabs benzonatate 100 mg capsule 100 mg PO TID PRN cough #15 caps 03/01/22 prednisone 20 mg tablet 40 mg (2 x 20 mg) PO DAILY 5 days 03/01/22 #10 tabs naproxen 500 mg tablet 500 mg PO BID 7 days #14 tab s 06/08/22 cefuroxime axetil 250 mg tablet 250 mg PO BID #10 tabs 02/15/25 ketorolac 10 mg tablet 10 mg PO Q6H PRN pain #20 ta bs 02/18/25 methocarbamol 750 mg tablet 1,500 mg (2 x 750 mg) PO Q 8H PRN 02/18/25 pain, moderate #24 tabs Allergies Allergy/AdvReac Type Severity Reaction Status Date / Time No Known Allergies Allergy Mild NONE Verified 02/17/25 22:28 Review of Systems 2 Review of Systems: Yes all other systems are reviewed and are negative Constitutional: Constitutional: Denies fatigue and Denies fever(s) Cardiovascular: Cardiovascular: Denies chest pain and Denies dyspnea Respiratory: Respiratory: Denies dyspnea Gastrointestinal: Gastrointestinal: Denies abdominal pain, Denies nausea and Denies vomiting Genitourinary: Genitourinary: Denies dysuria, Reports pelvic pain and Denies vaginal discharge Endocrine: Endocrine: Denies fatigue PMFSH Past Medical History Attestation statement: The following information was validated with the patient. Medical History Asthma Endometriosis Migraines Social History Social History Smoked in Last 30 Days: No Use of substances other than those prescribed or required for medical reasons: No Advance Directives: No Advance Directives Information Provided: Yes Physical Exam 2 Vital Signs: Vital Signs: Last Vital Signs Temp 97.0 F 02/18/25 00:56 Pulse 80 02/18/25 00:56 Resp 20 02/18/25 00:56 BP 120/75 02/18/25 00:56 Pulse Ox 98 02/18/25 00:56 O2 Del Method Room Air 02/18/25 00:56 BMI result Body Mass Index 40.3 Const: Other: Alert Orientation/consciousness: patient oriented x3 Resp: Effort & Inspection: normal respiratory effort Cardio: Other: Normal peripheral perfusion GI: Other: Soft, obese abdomen, nontender no guarding : Other: Normal external genitalia, the cervix is not friable, there was no bleeding or other discharge, no CMT and no discomfort with the exam Skin: Other: Warm dry no rash Neuro: General: patient oriented x3, gait normal, no focal motor deficits and CN's II-XI intact bilaterally Psych: Other: Cooperative Course Reevaluation(s) Reevaluation #1: Patient's symptoms improved after Toradol and methocarbamol Medications Administered Discontinued Medications Generic Name Dose Route Start Last Admin Trade Name Freq PRN Reason Stop Dose Admin Ketorolac Tromethamine 15 mg 02/17/25 23:29 02/17/25 23:41 Ketorolac Tromethamine 15 Mg/Ml Vial IM 02/17/25 23:30 15 mg ONCE ONE Administration Methocarbamol 1,500 mg 02/17/25 23:29 02/17/25 23:40 Methocarbamol 750 Mg Tablet PO 02/17/25 23:30 1,500 mg ONCE ONE Administration Medical Decision Making Medical Decision Making [facility] Narrative: 34-year-old female presents with pelvic cramping x2 days. Patient had an IUD removed here in the emergency room 2 days ago, she was prescribed antibiotics for suspect urinary tract infection. Patient states the cramping has increased in severity, she has been using [id number] ibuprofen without relief of symptoms. Denies fever or new vaginal discharge. Problem: Recent IUD removal History: Per patient I have considered the following differential diagnoses: Cervical cramping/spasm, endometritis, cervicitis, injury to the cervix Plan: Performed pelvic exam it was unremarkable it was not painful to the patient, I explained to her that it can be normal to have cramping after having an IUD removed. Given Toradol methocarbamol. Screening labs and urine sample are in process. No indication for imaging at this time as I have low suspicion for uterine infection. I have independently reviewed the following tests: Labs: No leukocytosis, not anemic, no electrolyte abnormality, not , urine not infected...... I reviewed the culture from her recent urinalysis, it was a contaminated sample she does not truly have a urinary tract infection. Differential Diagnosis Differential Diagnoses: The differential diagnosis associated with the presentation includes See medical decision-making Admission/Observation Consideration of admission/observation: Escalation of care including admission/observation considered Not applicable Lab Data MDM Lab Attestation statement: I reviewed the patient's lab results. 02/17/25 23:26 02/17/25 23:26 Labs: Lab Results 02/17/25 02/18/25 Range/Units 23:26 00:04 WBC 7.4 (4.8-10.8) X10*3/uL RBC 4.99 (4.20-5.50) X10*6/uL Hgb 14.1 (12.0-16.0) g/dl Hct 41.1 (37.0-47.0) % MCV 82.4 (80.0-98.0) fL MCH 28.3 (27.0-33.0) pg MCHC 34.3 (31.0-35.0) g/dl RDW 12.3 (11.0-16.0) % Plt Count 273 (160-400) X10*3/uL MPV 8.5 L (9.4-12.3) fL Immature Gran % (Auto) 0.1 (0.0-0.4) % Neut % (Auto) 43.4 L (45-73) % Lymph % (Auto) 49.7 H (20-40) % [place] % (Auto) 5.6 (2-11) % Eos % (Auto) 0.8 (0-4) % Baso % (Auto) 0.4 (0-2) % Lymph # (Auto) 3.7 (1.2-4.9) X10*3/uL [place] # (Auto) 0.4 (0.1-1.2) X10*3/uL Eos # (Auto) 0.1 (0.0-0.4) X10*3/uL Baso # (Auto) 0.0 (0.0-0.2) X10*3/uL Abs Immat Gran (auto) 0.01 (0.00-0.03) X10*3/uL Absolute Neuts (auto) 3.2 (2.0-8.3) x10*3/uL Absolute Nucleated RBC 0.000 (0.0-0.012) X10*3/uL Nucleated RBC % (auto) 0.0 (0.0-0.2) /100WBC Sodium 141 (135-145) mmol/L Potassium 3.9 (3.3-5.1) mmol/L Chloride 104 (96-108) mmol/L Carbon Dioxide 27 (22-29) mmol/L Anion Gap 14 (12-20) BUN 12 (9-16) mg/dL Creatinine 0.82 (0.5-1.4) mg/dL Estim Creat Clear Calc 122.3 Estimated GFR > 60 Random Glucose 93 (60-115) mg/dL Calcium 9.9 (8.4-10.2) mg/dL Total Bilirubin 0.3 (0.0-1.0) mg/dL AST 17 (5-31) U/L ALT 24 (0-31) U/L Alkaline Phosphatase 73 (39-117) U/L Total Protein 7.1 (6.5-8.0) g/dL Albumin 4.5 (3.5-5.0) g/dL Beta HCG, Quant < 2 mIU/mL Urine Color Yellow Urine Appearance Clear Urine pH 7.5 (5.0-9.0) Ur Specific Reed 1.010 (1.005-1.025) Urine Protein Negative (Neg-Trace) mg/dL Urine Glucose (UA) Negative (Negative) mg/dL Urine Ketones Negative (Negative) mg/dL Urine Blood Large (3+) H (Negative) Urine Nitrite Negative (Negative) Ur Leukocyte Esterase Small (1+) H (Negative) Urine RBC 0-2 (0-2) /HPF Urine WBC 6-10 H (0-5) /HPF Ur Squamous Epith Cells 3-5 (0-2) /HPF Urine Bacteria Trace (None Seen) Hyaline Casts 0-2 (0-2) /LPF Discharge Plan Discharge Clinical Impression: Pelvic cramping Patient Disposition: Home, Self-Care Instructions: Pelvic Pain (ED) Additional Instructions: You are experiencing cramping from having the IUD removed. Today you had no lab abnormalities, your urine is not infected, the urine culture from the other day resulted. You can discontinue the use of the antibiotics. Take the ketorolac as needed for pain, this is an anti-inflammatory take it with food. Use the methocarbamol as needed for further pain, this is a muscle relaxant. It can cause drowsiness do not drive or operate machinery while taking the medication. Follow up with your museum registrar as needed. Prescriptions: New ketorolac 10 mg tablet 10 mg PO Q6H PRN (Reason: pain) Qty: 20 0RF Rx Instructions: maximum total duration of 5 days from all oral, intranasal, or parenteral formulations, patient received an intramuscular dose of Toradol here in the emergency room methocarbamol 750 mg tablet 1,500 mg PO Q8H PRN (Reason: pain, moderate) Qty: 24 0RF No Action azithromycin 250 mg tablet See Rx Instructions .ROUTE .COMPLEX Qty: 6 0RF Rx Instructions: For 250 mg dose pack: take 500 mg today (day 1), then 250 mg for 4 days (days 2-5) benzonatate 100 mg capsule 100 mg PO TID PRN (Reason: cough) Qty: 15 0RF prednisone 20 mg tablet 40 mg PO DAILY 5 Days Qty: 10 0RF naproxen 500 mg tablet 500 mg PO BID 7 Days Qty: 14 0RF cefuroxime axetil 250 mg tablet 250 mg PO BID Qty: 10 0RF Interventions: ED Discharge Assessment Last Done: 02/18/25 00:56 Discharge Date/Time: 02/18/25 00:58 Print Language: Indonesian
[2025-02-18 00:53] VITALS: BP 120/75; PULSE 80; RESP 20; TEMP 36.1; O2SAT 98
--- NOTE | 2025-02-18 00:54 | PC.NURSE ---
reviewed discharge instructions wit pt. pt verbalized understanding,no sign of distress.
[2025-02-18 00:56] VITALS: BP 120/75; PULSE 80; RESP 20; TEMP 36.1; O2SAT 98
== END 2025-02-18 00:58 | disposition home or self-care (01) ==
PROVIDERS: Emergency Provider Emergency Medicine
DX: R25.2 Cramp and spasm (principal); Z79.899 Other long term (current) drug therapy
CPT/HCPCS: 36415; 80053; 81001; 84702; 85025; 87086; 96372; 99284; J1885